=== PATIENT | female | born 1960 | race Caucasian/White ===

== ENCOUNTER 2018-07-10 10:58 | Outpatient (CLI) | payer BC, SELFPAY ==
[2018-07-10 12:58] LABS: ALT 26 U/L (12-78); AST 16 U/L (15-37); Albumin 3.8 g/dL (3.4-5.0); Alkaline Phosphatase 106 U/L (46-116); Anion Gap 10.8 mmol/L (3-11); BUN 20 mg/dL (7-18); Bilirubin, Total 1.5 mg/dL (0.2-1.0); CO2 27.2 mmol/L (21.0-32.0); CREATININE 0.93 mg/dL (0.55-1.02); Calcium 9.2 mg/dL (8.5-10.1); Chloride 101 mmol/L (98-107); Cholesterol 210 mg/dL (50-200); Glucose 156 mg/dL (70-100); HDL Cholesterol 93 mg/dL (40-60); LDL CHOLESTEROL 105 mg/dL (<100); Potassium 3.9 mmol/L (3.5-5.1); Sodium 139 mmol/L (136-145); Total Protein 7.1 g/dL (6.4-8.2); Triglyceride 54 mg/dL (30-150)
[2018-07-10 13:00] LABS: Hemoglobin A1C 9.5 % (4.5-6.2)
[2018-07-10 13:55] LABS: COMMENT (LAB VIEW ONLY) 38.34 mg/dL; Microalb ug/mg Crea 8.3 ug/mg Cr
== END 2018-07-10 11:18 ==
PROVIDERS: PCP Family Medicine; Visit Provider Family Medicine
DX: E11.9 Type 2 diabetes mellitus without complications (principal)
CPT/HCPCS: 36415; 80053; 80061; 83721; 82043; 82570; 83036

== ENCOUNTER 2018-07-10 15:25 | Outpatient (REF) | payer BC, SELFPAY ==
--- NOTE | 2018-07-10 12:00 | PAPFT_PTH ---
PATIENT: Paty Torres LOC: [facility] U#:[id number] AGE/SX: 58/F ROOM: RE07/10/[address]: Natasha Trinidad MD : [id number] BED: DIS: 07/10/2018 SPEC #: [id number] RECD: 07/11/18 13:18 STATUS: DONNA RERola #: [id number] KENNEDY: 07/10/18 12:[address]: Natasha Trinidad DEPT: [facility] Cytology RECD BY: Jerilyn Muhammad Tissues: 1 - CX/ENDOCX FOR PAP SMEARS Procedures: PAP THIN PREP/UVM Screening HPV DNA PROBE Comments: [id number]
== END 2018-07-10 15:45 ==
LOC: LBN 15:25
PROVIDERS: PCP Family Medicine; Visit Provider Family Medicine
DX: Z12.4 Encounter for screening for malignant neoplasm of cervix (principal); Z11.51 Encounter for screening for human papillomavirus (HPV)
CPT/HCPCS: 88142; 87624

== ENCOUNTER 2019-07-21 10:14 | Outpatient (CLI) | payer BC, SELFPAY ==
[2019-07-21 13:31] LABS: ALT 30 U/L (14-59); AST 17 U/L (15-37); Albumin 3.9 g/dL (3.4-5.0); Alkaline Phosphatase 104 U/L (46-116); Anion Gap 8.3 mmol/L (3-11); BUN 17 mg/dL (7-18); Bilirubin, Total 0.9 mg/dL (0.2-1.0); CO2 29.7 mmol/L (21.0-32.0); CREATININE 0.77 mg/dL (0.55-1.02); Calcium 9.3 mg/dL (8.5-10.1); Calculated LDL 97 mg/dL (<100); Chloride 103 mmol/L (98-107); Cholesterol 193 mg/dL (<200); Glucose 151 mg/dL (74-106); HDL Cholesterol 88 mg/dL (40-60); Potassium 4.8 mmol/L (3.5-5.1); Sodium 141 mmol/L (136-145); Total Protein 7.1 g/dL (6.4-8.2); Triglyceride 40 mg/dL (<150)
[2019-07-21 13:38] LABS: COMMENT (LAB VIEW ONLY) 261.82 mg/dL; Microalb ug/mg Crea 6.3 ug/mg Cr
[2019-07-21 13:43] LABS: Bilirubin, Direct 0.19 mg/dL (0.00-0.20)
[2019-07-21 15:34] LABS: Hemoglobin A1C 7.7 % (3.8-5.6)
== END 2019-07-21 10:34 ==
PROVIDERS: PCP Family Medicine; Visit Provider Family Medicine
DX: R17 Unspecified jaundice (principal); E11.65 Type 2 diabetes mellitus with hyperglycemia; E78.5 Hyperlipidemia, unspecified
CPT/HCPCS: 36415; 80053; 80061; 82043; 82248; 82570; 83036

== ENCOUNTER 2019-12-19 03:52 | Outpatient (CLI) | payer BC, SELFPAY ==
--- NOTE | 2019-12-19 08:30 | DI.MAMMO_ITS ---
EXAM: MG MAMMO SCREENING CLINICAL HISTORY: screening,z12.39 TECHNIQUE: Mammograms were interpreted according to the usual protocol including computer analysis w [facility] CAD system, tomosynthesis and C-view imaging. COMPARISON: FINDINGS: The breasts are of moderate density with fairly symmetrical distribution of fibroglandular tissue. N o dominant mass or clumped microcalcification is identified in either breast. The current examinatio n is compared with previous studies including December 2017 and there has been no gross interval change i n appearance in comparison with the prior exams. IMPRESSION: No specific evidence of malignancy at this time. Routine screening examinations are suggested at yea rly intervals in this age group according to the ACS ACR guidelines. BI-RADS Category 1 - Negative Breast Density - Category B - Scattered areas of fibroglandular density
== END 2019-12-19 04:12 ==
PROVIDERS: PCP Family Medicine; Visit Provider Family Medicine
DX: Z12.31 Encounter for screening mammogram for malignant neoplasm of breast (principal)
CPT/HCPCS: 77063; 77067

== ENCOUNTER 2020-01-26 07:14 | Outpatient (CLI) | payer BC, SELFPAY ==
[2020-01-28 05:08] LABS: SARS-CoV-2 RNA Undetected (Undetected); SARS-CoV-2 Specimen Source Nasopharynx
== END 2020-01-26 07:34 ==
PROVIDERS: PCP Family Medicine; Visit Provider Family Medicine
DX: Z11.59 Encounter for screening for other viral diseases (principal)
CPT/HCPCS: U0003

== ENCOUNTER 2020-08-04 03:05 | Outpatient (CLI) | payer BC, SELFPAY ==
[2020-08-04 10:26] LABS: COMMENT (LAB VIEW ONLY) 86.59 mg/dL; Microalb ug/mg Crea 5.5 ug/mg Cr
[2020-08-04 10:29] LABS: ALT 29 U/L (14-59); AST 18 U/L (15-37); Albumin 3.9 g/dL (3.4-5.0); Alkaline Phosphatase 110 U/L (46-116); Anion Gap 9.7 mmol/L (3-11); BUN 17 mg/dL (7-18); Bilirubin, Total 0.9 mg/dL (0.2-1.0); CO2 27.3 mmol/L (21.0-32.0); CREATININE 0.8 mg/dL (0.55-1.02); Calcium 9.2 mg/dL (8.5-10.1); Calculated LDL 82 mg/dL (<100); Chloride 102 mmol/L (98-107); Cholesterol 180 mg/dL (<200); Glucose 218 mg/dL (74-106); HDL Cholesterol 88 mg/dL (40-60); Potassium 4.5 mmol/L (3.5-5.1); Sodium 139 mmol/L (136-145); Total Protein 7.4 g/dL (6.4-8.2); Triglyceride 54 mg/dL (<150)
== END 2020-08-04 03:06 | disposition home or self-care (01) ==
LOC: LBO 03:05
PROVIDERS: PCP Family Medicine; Visit Provider Family Medicine
DX: E11.9 Type 2 diabetes mellitus without complications (principal); Z79.4 Long term (current) use of insulin
CPT/HCPCS: 36415; 80053; 80061; 82043; 82570; 83036

== ENCOUNTER 2021-09-16 02:14 | Outpatient (CLI) | payer BC, SELFPAY ==
--- NOTE | 2021-09-16 08:02 | DI.MAMMO_ITS ---
Exam(s) MAMMO SCREENING EXAM: MAMMO SCREENING CLINICAL HISTORY: screening,z12.39 TECHNIQUE: Bilateral full field digital CC and MLO mammographic images were obtained with 3D tomosyn thesis and utilizing computer aided detection (CAD). COMPARISON: Available for comparison. FINDINGS: Masses/Architectural Distortion: None seen. Microcalcifications: No suspicious pleomorphic-type are seen. Skin Thickening/Nipple Retraction: None. IMPRESSION: 1. No significant interval change with no specific features of malignancy noted. 2. Unless there is more urgent need, screening mammography is recommended, as per [employer] guidelines. BI-RADS Category 1 - Negative Breast Density - Category B - Scattered areas of fibroglandular density Breast density category C or D implies that the patient has dense breast tissue. Dense breast tissue is very common and is not abnormal but dense breast tissue can make it harder to find cancer on a ma mmogram. Also, dense breast tissue may increase their breast cancer risk. This information about the result of the mammogram report was provided to the patient to raise their awareness. Use this report when you speak with the patient about their risks for breast cancer, which includes their family hist ory. At that time, you may recommend for more screening tests (Ultrasound or MRI) as they might be us eful based on their risk. A negative radiographic report should not delay biopsy if a dominant or clinically suspicious mass is present. Up to ten percent of cancers are not identified on mammography. A negative report may reinforce clinical impression. Adenosis and dense breasts may obscure an underlying neoplasm. False positive reports average 6 to 10%. Patient will receive a letter notifying them of these results.
== END 2021-09-16 02:34 ==
PROVIDERS: PCP Nurse Practitioner; Visit Provider Family Medicine
DX: Z12.31 Encounter for screening mammogram for malignant neoplasm of breast (principal)
CPT/HCPCS: 77063; 77067

== ENCOUNTER 2021-11-19 04:39 | Observation (INO) | payer BC, SELFPAY ==
[2021-11-19] VITALS (20 sets, daily range): BP systolic 100–191; BP diastolic 52–101; PULSE 62–107; RESP 13–25; TEMP 35.3–36.7; O2SAT 94–100; BMI 25.7
--- NOTE | 2021-11-19 04:45 | DI.RAD_ITS ---
Exam(s) XR ANKLE RT COMPLETE EXAM: XR ANKLE RT COMPLETE CLINICAL HISTORY: fall, suspect fracture vs dislocation. TECHNIQUE: 2D digital imaging was performed of the right ankle. Three images were obtained. AP, la teral and oblique views were obtained. COMPARISON: No exams were available for comparison FINDINGS: BONES: There is an acute oblique fracture of the distal fibula at the level of the ankle joint. The distal fracture is angulated laterally. There is also a transverse fracture through the base of the medial malleolus with lateral displacement of the fracture. No bony destructive lesion is seen. JOINTS: There is lateral angulation and subluxation of the ankle joint. SOFT TISSUE: Soft tissue swelling is present. IMPRESSION: Bilayer older fracture with lateral angulation and subluxation of the ankle joint. DATA REPOSITORY: RADIATION DOSE DELIVERED:
--- NOTE | 2021-11-19 04:50 | ED.GENADUL_ITS ---
Discharge Plan Disposition Patient Disposition: [facility] INPATIENT Condition: Stable Discharge Details Clinical Impression: Ankle fracture, right, Closed right fibular fracture Primary Care Provider: Eleanor Bedoya ED Provider: Matthew Ruff Home Meds and New Rx's Prescriptions: No Action hydroxyzine HCl 25 mg tablet 25 mg PO HS PRN (Reason: itching) Qty: 30 1RF aspirin 81 mg tablet,delayed release (DR/EC) 81 mg PO DAILY Qty: 90 0RF Rx Instructions: not sent valacyclovir [Valtrex] 1 gram tablet 2,000 mg PO DIRECTED Qty: 20 2RF Rx Instructions: TAKE 2 TABS WHEN SYMPTOMS START AND 2 TABS 12 HOURS LATER atorvastatin 40 mg tablet 40 mg PO DAILY Qty: 90 3RF Rx Instructions: /take one tablet daily (DME) Dexcom G6 [employer] Misc See Rx Instructions .ROUTE .MEDSUPPLY Qty: 1 0RF Rx Instructions: As directed (DME) pen needle, diabetic [BD Ultra-Fine Short Pen Needle] 31 gauge x 5/16 needle See Dose Instructions .ROUTE .MEDSUPPLY Qty: 450 4RF Dose Instruction: As directed Rx Instructions: 1 each 5 times/day as directed (DME) FreeStyle Lite Strips Strip See Rx Instructions .ROUTE .MEDSUPPLY Qty: 600 4RF Rx Instructions: Check blood sugar 6 times a day (DME) FreeStyle Loni 2 Lovejoy Misc See Rx Instructions .ROUTE .MEDSUPPLY Qty: 1 0RF Rx Instructions: As directed Lantus Solostar U-100 Insulin 100 unit/mL (3 mL) insulin pen 24 unit subcut DAILY Qty: 15 4RF (DME) FreeStyle Loni 2 Sensor Kit See Rx Instructions .ROUTE .MEDSUPPLY Qty: 6 4RF Rx Instructions: As directed (DME) Dexcom G6 Sensor Device See Rx Instructions .ROUTE .MEDSUPPLY Qty: 3 12RF Rx Instructions: As directed (DME) Dexcom G6 Transmitter Device See Rx Instructions .ROUTE .MEDSUPPLY Qty: 1 12RF Rx Instructions: As directed insulin lispro [Humalog KwikPen Insulin] 100 unit/mL insulin pen 8 unit SC QID Qty: 30 0RF Medical Decision Making This is a very pleasant 61-year-old female with a past medical history of high cholesterol, type 2 diabetes, who presents today for evaluation of right ankle pain. Patient was getting up to check her blood sugar levels this morning, and twisted her ankle and had immediate pain. She denies falling and hitting her head. She denies any other trauma. She has not been able to bear weight on the right ankle since the episode occurred. She came in with her for further evaluation. She denies any new numbness or tingling. She states the pain is very mild. Only worsened with palpation or weightbearing Goal exam demonstrate physical exam of the right ankle demonstrates that clearly dislocated or fractured ankle. Exam distal to the injury site demonstrates good sensation throughout the foot, good flexion and extension of the toes, dorsalis pedis is +2, and capillary refill is 3 seconds in all digits. We will get an x- ray to confirm suspected pathology, patient wants nothing for her pain at this time. We will continue to monitor closely and reassess 5:31 AM X-ray shows results of distal fibular fracture and ankle mortise malalignment. Suspicion for other osseous injury. Patient will likely require surgery. Patient ate lastat about 4 AM. Will get labs, and do maintenance fluids of D5 h [place]-normal to maintain blood sugar levels with every 2 hours Accu-Cheks. We will contact orthopedics. Patient remains notably comfortable on pillow. Patient remains vascularly intact. 7:20 AM Orthopedics did recommend attempt at reduction, splinting, outpatient management is successful. Patient was sedated without complication, we were able to reduce the ankle easily, however it would quickly flipped back into its prereduction position. There felt to be no significant posterior and lateral barriers to hold it. Subsequently we again reduced it and held it there while a splint was applied. However subsequent x-ray revealed that there was no improvement whatsoever. We did contact orthopedics, and Dr. Riley again reviewed the case. He feels that the patient will need to be brought to the OR for definitive surgical management. We will keep the patient n.p.o. and monitor here in the ED. postprocedural exam still does demonstrate intact sensation, and intact vascular exam FINDINGS: Bones/joints: Oblique fracture through the distal fibula at the level of the tibiofibular syndesmosis. Lateral angulation of the distal fracture fragment. Overlap of the fracture fragments. Malalignment of the ankle mortise. Probable additional fracture of the distal tibia, poorly characterized. Soft tissues: No tibio-talar joint effusion is present. Kager's fat pad is normal. IMPRESSION: 1. Distal fibular fracture. 2. Malalignment of the ankle mortise. 3. Probable additional fracture of the distal tibia. Consider cross-sectional imaging for further evaluation. Thank you for allowing us to participate in the care of your patient. Dictated and Authenticated by: Tye Theodore MD 11/19/2021 5:30 AM Eastern Time ([place] & [place]) HPI General Date/Time Provider Initiated Documentation: 11/19/21 04:39 . HPI Narrative: This is a very pleasant 61-year-old female with a past medical history of high cholesterol, type 2 diabetes, who presents today for evaluation of right ankle pain. Patient was getting up to check her blood sugar levels this morning, and twisted her ankle and had immediate pain. She denies falling and hitting her head. She denies any other trauma. She has not been able to bear weight on the right ankle since the episode occurred. She came in with her for further evaluation. She denies any new numbness or tingling. She states the pain is very mild. Only worsened with palpation or weightbearing Related Data Home Medications Medication Instructions Recorded Confirmed valacyclovir 1 gram tablet 2,000 mg PO DIRECTED #20 07/24/18 11/19/21 (Valtrex) tab-caps pen needle, diabetic 31 gauge x #450 ea 09/18/18 08/03/2111/07 (BD Ultra-Fine Short Pen Needle) hydroxyzine HCl 25 mg tablet 25 mg PO HS PRN itching #30 tabs 07/21/19 11/19/21 blood sugar diagnostic (FreeStyle #600 ea 07/27/20 08/03/21 Lite Strips) flash glucose scanning reader #1 ea 08/05/20 08/03/21 (FreeStyle Lnoi 2 Lovejoy) insulin glargine 100 unit/mL (3 24 unit (0.24 mL) subcut DAILY #15 01/10/21 11/19/21 mL) subcutaneous pen (Lantus mL Solostar U-100 Insulin) aspirin 81 mg tablet,delayed 81 mg PO DAILY #90 tabs 01/27/21 11/19/21 release flash glucose sensor (FreeStyle #6 ea 22 08/03/21 Loni 2 Sensor kit) atorvastatin 40 mg tablet 40 mg PO DAILY #90 tab-caps 08/03/21 11/19/21 blood-glucose meter,continuous #1 ea 22 08/03/21 (Dexcom G6 [employer] misc) blood-glucose sensor (Dexcom G6 #3 ea 09/06/21 Sensor device) blood-glucose transmitter (Dexcom #1 ea 09/06/21 G6 Transmitter device) insulin lispro 100 unit/mL 8 unit (0.08 mL) subcut QID #30 mL 10/28/21 11/19/21 subcutaneous pen (Humalog KwikPen (U-100) Insulin) Previous Rx's Medication Instructions Recorded valacyclovir 1 gram tablet 2,000 mg PO DIRECTED #20 07/24/18 (Valtrex) tab-caps pen needle, diabetic 31 gauge x #450 ea 09/18/18/ (BD Ultra-Fine Short Pen Needle) hydroxyzine HCl 25 mg tablet 25 mg PO HS PRN itching #30 tabs 07/21/19 blood sugar diagnostic (FreeStyle #600 ea 07/27/20 Lite Strips) flash glucose scanning reader #1 ea 08/05/20 (FreeStyle Loni 2 Lovejoy) insulin glargine 100 unit/mL (3 24 unit (0.24 mL) subcut DAILY #15 01/10/21 mL) subcutaneous pen (Lantus mL Solostar U-100 Insulin) aspirin 81 mg tablet,delayed 81 mg PO DAILY #90 tabs 01/27/21 release flash glucose sensor (FreeStyle #6 ea 07/20/21 Loni 2 Sensor kit) atorvastatin 40 mg tablet 40 mg PO DAILY #90 tab-caps 08/03/21 blood-glucose meter,continuous #1 ea 08/03/21 (Dexcom G6 [employer] misc) blood-glucose sensor (Dexcom G6 #3 ea 09/06/21 Sensor device) blood-glucose transmitter (Dexcom #1 ea 09/06/21 G6 Transmitter device) insulin lispro 100 unit/mL 8 unit (0.08 mL) subcut QID #30 mL 10/28/21 subcutaneous pen (Humalog KwikPen (U-100) Insulin) Allergies Allergy/AdvReac Type Severity Reaction Status Date / Time No Known Allergies Allergy Verified 11/19/21 04:47 General Stated Complaint: Orthopedic DILSHAD: 3 Review of Systems All systems reviewed & are unremarkable except as noted in HPI and below PFSH All Active Problems (Updated 11/19/21 @ 07:23 by Matthew Ruff DO) Ankle fracture, right (Acute) Closed right fibular fracture (Acute) Herpes labialis (Acute) As needed high-dose Valtrex x2 doses Vitiligo (Acute) Diffuse hypopigmentation Hyperlipidemia (Acute) Diabetes mellitus type 2, insulin dependent (Acute) Contact dermatitis (Acute) Surgical History Ligation of fallopian tube Family History Mother Diabetes Essential hypertension Skin cancer Heart disease Father , age 60 Essential hypertension Heart disease Emphysema lung Diabetes Sister Essential hypertension Hyperlipidemia Diabetes Maternal Grandfather No problems noted. Paternal Grandfather Cancer Maternal Grandmother Alcohol abuse Paternal Grandmother No problems noted. Sister Diabetes Essential hypertension Hyperlipidemia Sister No problems noted. Sister No problems noted. Son Alcohol abuse Daughter No problems noted. Social History Smoking/Tobacco Use Status: Never Second Hand Exposure: Yes Smoking risk assessment performed?: Yes Alcohol Intake: current Alcohol Intake frequency: holidays/special occasions only Drug use: Never Substance use type: does not use Counseling given: Yes Counseling provided: none Caregiver/Support person: No Household members: spouse Housing: house Communication Needs: None Do you need help understanding health information?: Never Pets and animals: Yes Pets and animals: dog(s) Sexually active: Yes Do you think of yourself as: straight/heterosexual Current gender identity: female What is your relationship status?: How often do you talk on the phone with friends or family?: three or more times per week How often do you attend pentecostal or oriental orthodox services?: decline to answer Do you belong to any clubs or organized social groups?: no Panel score (0-1 are the most socially isolated patients): 2 What type of physical activity do you participate in: walking and other Details: treadmill Duration: 15-30 minutes/day Frequency: 1-2 times per week Sari/Oriental Orthodox: Gnosticist Special sari needs: No Seatbelt use: always Helmet use: Yes Helmet use: always Drive intox or ride w/intox jinrikisha driver: No Do you feel safe at home: Yes Do you feel safe in your relationship?: Yes Exam Narrative Exam Narrative: 1.Const: Well-nourished, Well-developed, appearing stated age 2.Eyes: PERRL, no conjunctival injection, and symmetrical lids. 3.ENT: Atraumatic external nose and ears. Moist MM. Neck: Symmetric, trachea midline, No thyromegaly. 4.CVS: +S1/S2, No murmurs or gallops. Peripheral pulses 2+ and equal in all extremities. Brisk capillary refill in all extremities. 5.RESP: Unlabored respiratory effort. Clear to auscultation bilaterally. No wheezes rales or rhonchi 6.GI: Soft, Nontender/Nondistended, No hepatosplenomegaly. No guarding or rebound. 7.MSK: Notable deformity of the right ankle with what appears to be anterior displacement of the distal tibia. Mild tenderness there. Distal exam from the injury point demonstrates intact dorsalis pedis pulse, good sensation throughout, capillary refill is 3 seconds. Patient is able to flex and extend the toes well. No movement of the ankle secondary to suspected fracture/dislocation. 8.Skin: Warm, Dry. No rashes or lesions. 9.Neuro: assessment services manager II-XII grossly intact. Sensation grossly intact, no focal neurologic deficits. 10.Psych: (AAO) x3. Appropriate mood and affect Course Vital Signs Vital signs: Vital Signs Temperature 36.7 C 11/19/21 04:45 Pulse 71 11/19/21 04:45 Respiratory Rate 16 11/19/21 04:45 Blood Pressure 151/74 H 11/19/21 04:45 Pulse Oximetry 99 11/19/21 04:45 Temperature 36.7 C 11/19/21 04:45 Temperature Source Skin 11/19/21 04:45 Pulse 71 11/19/21 04:45 Respiratory Rate 16 11/19/21 04:45 Blood Pressure 151/74 H 11/19/21 04:45 Pulse Oximetry 99 11/19/21 04:45 Pain Level 3 11/19/21 04:45 Procedures Orthopedic Fracture Reduction Fracture #1: Time Out Performed: Yes Side: right Fracture Reduction Location: other (ankle) Analgesia: procedural sedation Technique: direct manipulation and traction/counter-traction Post Reduction X-rays Demonstrate: other (no improvement) Post-reduction neuro exam: intact Post-reduction vascular exam: intact Splint Applied: Yes Patient Tolerated Procedure: well Procedural Sedation Indication: fracture/dislocation reduction ASA Class: II Time of Last PO Intake: 04:00 Preparation: campus monitor applied, pulse oximeter, capnometry used, supplemental O2 applied, suction/airway equipment at bedside and IV secured Ketamine: IV Ketamine dose (mg): 50 Patient Tolerated Procedure: well and no complications Complications: none Sign Out Sign Out Data: Sign Out Comment: Right ankle fracture, pending admission to the OR Last updated by Matthew Ruff DO at 11/19/21 07:24
--- NOTE | 2021-11-19 05:30 | DI.VRAD_ITS ---
PROCEDURE INFORMATION: Exam: XR Right Ankle Exam date and time: 11/19/2021 4:59 AM Age: 61 years old Clinical indication: Injury or trauma; Fracture, traumatic; Closed fracture; Right; Not specified; Injury date: 11/19/21; Injury details: PT states fall syncope, ankle injury TECHNIQUE: Imaging protocol: XR Right ankle. Views: 3 or more views. COMPARISON: No relevant prior studies available. FINDINGS: Bones/joints: Oblique fracture through the distal fibula at the level of the tibiofibular syndesmosis. Lateral angulation of the distal fracture fragment. Overlap of the fracture fragments. Malalignment of the ankle mortise. Probable additional fracture of the distal tibia, poorly characterized. Soft tissues: No tibio-talar joint effusion is present. Kager's fat pad is normal. IMPRESSION: 1. Distal fibular fracture. 2. Malalignment of the ankle mortise. 3. Probable additional fracture of the distal tibia. Consider cross-sectional imaging for further evaluation. Dictated and Authenticated by: Tye Theodore MD. Ordering:ARINA Castro MD
[2021-11-19 05:37] LABS: Abs Immature Grans 0.05 10^3/uL (0.0-0.06); Absolute Basophil Count 0.04 10^3/uL (0.0-0.2); Absolute Eosinophil Count 0.09 10^3/uL (0.0-0.7); Absolute Lymphocyte Count 1.34 10^3/uL (1.2-3.4); Absolute Monocyte Count 1.13 10^3/uL (0.1-0.8); Basophils % 0.3; Eosinophils % 0.7; HCT 36.9 % (36.0-46.0); HGB 11.9 g/dL (11.2-15.7); Immature Grans % 0.4; Lymphocytes % 10.8; MCH 28.5 pg (27.0-33.0); MCHC 32.2 % (32.0-36.0); MCV 88 fL (80-95); MPV 10.4 fL (8.0-11.0); Monocytes % 9.1; Neutrophils % 78.7; Platelet Count 329 10^3/uL (130-400); RBC 4.18 10^6/uL (3.93-5.22); RDW 13.3 % (11.7-14.6); RDW-SD 43.2 fL; WBC 12.45 10^3/uL (4.4-10.8)
[2021-11-19 05:58] LABS: ALT 29 U/L (14-59); AST 22 U/L (15-37); Albumin 3.6 g/dL (3.4-5.0); Alkaline Phosphatase 92 U/L (46-116); Anion Gap 10.9 mmol/L (3-11); BUN 17 mg/dL (7-18); Bilirubin, Total 0.4 mg/dL (0.2-1.0); CO2 26.1 mmol/L (21.0-32.0); CREATININE 0.8 mg/dL (0.55-1.02); Calcium 8.9 mg/dL (8.5-10.1); Chloride 107 mmol/L (98-107); Glucose 153 mg/dL (74-106); Potassium 4.2 mmol/L (3.5-5.1); Sodium 144 mmol/L (136-145); Total Protein 7.1 g/dL (6.4-8.2)
[2021-11-19] MEDS: Ketamine 500 MG/10 ML VIAL 68 MG IVP ×2 (06:40→06:51)
--- NOTE | 2021-11-19 06:45 | DI.RAD_ITS ---
Exam(s) XR ANKLE RT COMPLETE EXAM: XR ANKLE RT COMPLETE CLINICAL HISTORY: post reduction. TECHNIQUE: 2D digital imaging was performed of the right ankle. Three images were obtained. AP, la teral and oblique views were obtained. COMPARISON: CR,XR XR ANKLE RT COMPLETE from 11/19/2021 FINDINGS: BONES: There again seen angulated and displaced fractures of both the mediolateral malleoli. Since t he prior examination there is now visualized a displaced posterior malleolar fracture. No bony destr uctive lesion is seen. JOINTS: Since the prior examination there has been interval dislocation of the ankle. SOFT TISSUE: Soft tissue swelling is present. The patient's ankle is been placed in a cast. IMPRESSION: Trimalleolar fracture dislocation of the right ankle. Since the examination from earlier in the day there has been dislocation of the ankle joint and displacement of the posterior malleolar fracture. DATA REPOSITORY: RADIATION DOSE DELIVERED:
--- NOTE | 2021-11-19 07:00 | DI.CT_ITS ---
Exam(s) CT LOWER EXTREMITY RT WO EXAM: CT LOWER EXTREMITY RT WO CLINICAL HISTORY: attention ankle. TECHNIQUE: Imaging Protocol: Axial computed tomography images with coronal and sagittal reformatted images were created and reviewed. COMPARISON: CR,XR XR ANKLE RT COMPLETE from 11/19/2021 FINDINGS: Bones: There is an acute comminuted fracture of the lateral malleolus at the level of the ankle join t. Posterior and lateral angulation of the distal fracture is noted. There is a comminuted displace d fracture of the posterior malleolus. There is a transverse fracture through the medial malleolus. The medial malleolus is displaced laterally. There is a complete right ankle dislocation. There is no evidence of joint space narrowing or cystic degeneration seen. No lytic or sclerotic lesions are identified. Soft Tissues: There is soft tissue swelling of the ankle. The patient's ankle is in a cast. IMPRESSION: Right ankle trimalleolar fracture dislocation. RADIATION DOSE DELIVERED: 213.63mGy.cm Total DLP 213.63mGy.cm Total DLP DATA REPOSITORY: All CT scans at this facility are submitted to the National Radiology Data Registry (NRDR) Dose Index Registry (DIR) with the [employer] (ACR). RADIATION OPTIMIZATION: All CT scans at this facility use at least one of these dose optimization te chniques: automated exposure control; mA and/or kV adjustment per patient size (includes targeted exa ms where dose is matched to clinical indication); or iterative reconstruction.
--- NOTE | 2021-11-19 07:28 | NUR.NOTE ---
pt is awake and alert, went to ct. no pain noted. NOHEMY
--- NOTE | 2021-11-19 07:31 | NUR.NOTE ---
conscious sedation charting complete. pt is awake and alert, talking on phone. continue to monitor. waiting on surgical team. NOHEMY
--- NOTE | 2021-11-19 07:51 | DI.VRAD_ITS ---
Addendum created by Tye Theodore MD on 11/19/2021 7:54:21 AM EDT: THIS REPORT CONTAINS FINDINGS THAT MAY BE CRITICAL TO PATIENT CARE. The findings were verbally communicated via telephone conference with RAEGAN Garza at 7:53 AM EDT on 11/19/2021. The findings were acknowledged and understood. Initial report created on 11/19/2021 7:50:49 AM EDT: PROCEDURE INFORMATION: Exam: XR Right Ankle Exam date and time: 11/19/2021 7:06 AM Age: 61 years old Clinical indication: Abnormal findings; Abnormal imaging study; Post reduction R ankle TECHNIQUE: Imaging protocol: XR Right ankle. Views: 3 or more views. COMPARISON: CR XR ANKLE RT COMPLETE 11/19/2021 4:59 AM FINDINGS: Bones/joints: Oblique fracture of the distal fibula now with worsening posterior angulation of the distal fracture fragment. Probable fracture of the posterior malleolus of the distal tibia. Interval dislocation of the ankle joint. Displaced fracture of the medial malleolus. Soft tissues: Interval casting of the right lower extremity. IMPRESSION: 1. Interval casting of the ankle joint. 2. Trimalleolar fracture. 3. Interval dislocation of the ankle joint. Dictated and Authenticated by: Tye Theodore MD. Ordering:ARINA Castro MD
--- NOTE | 2021-11-19 07:56 | DI.VRAD_ITS ---
PROCEDURE INFORMATION: Exam: CT Right Lower Extremity Without Contrast, Ankle Exam date and time: 11/19/2021 7:23 AM Age: 61 years old Clinical indication: Injury or trauma; Fall; Ankle; Right; Severity of dislocation not specified TECHNIQUE: Imaging protocol: CT of the Right lower extremity without contrast was performed. Exam focused on the ankle. COMPARISON: 1. CR XR ANKLE RT COMPLETE 11/19/2021 4:59 AM 2. CR XR ANKLE RT COMPLETE 11/19/2021 7:06 AM FINDINGS: Bones/joints: Oblique fracture through the distal fibula with extension to the tibiofibular syndesmosis. Approximately 45 degrees of posterior angulation of the distal fibular fracture fragment. Approximately 1.5 cm of overlap with the distal fibular fracture fragment. Displaced medial malleolar fracture. Complex multipart displaced fracture of the posterior malleolus of the distal tibia. Complete dislocation of the ankle joint. The talar dome appears unremarkable. Lateral midfoot accessory ossicle. Soft tissues: Surrounding superficial soft tissue swelling. IMPRESSION: 1. Trimalleolar fracture. 2. Interval dislocation of the ankle joint. THIS REPORT CONTAINS FINDINGS THAT MAY BE CRITICAL TO PATIENT CARE. The findings were verbally communicated via telephone conference with RAEGAN Garza at 7:55 AM EDT on 11/19/2021. The findings were acknowledged and understood. Dictated and Authenticated by: Tye Theodore MD. Ordering:ARINA Castro MD
--- NOTE | 2021-11-19 08:00 | DI.RAD_ITS ---
Exam(s) XR ANKLE RT 2V EXAM: XR ANKLE RT 2V CLINICAL HISTORY: RIGHT ANKLE FRACTURE TECHNIQUE: 2D and realtime digital imaging was performed. CONTRAST MATERIAL: Refer to procedure report. COMPARISON: CR,XR XR ANKLE RT COMPLETE from 11/19/2021 FINDINGS: Fluoroscopy was provided for Dr. Riley during the performance of a open reduction and internal fi xation of the right ankle fracture. Please refer to the procedure report for complete details. Ka,r=0.72 mGy IMPRESSION: RADIATION DOSE DELIVERED:
--- NOTE | 2021-11-19 08:04 | OCONE_ITS ---
Date of service: 11/19/21 Time of Service: 07:40 History of Present Illness History of Present Illness Chief Complaint: Right Ankle Fracture Narrative: Paty is a 61-year-old diabetic who was getting up this morning and felt somewhat lightheaded. She thought that she was hypoglycemic and she somehow fell. She had immediate pain in her right ankle with deformity. She was and brought into the emergency department diagnosed with an ankle fracture with subluxation. Attempted close reduction was performed which unfortunately did not improve the reduction and resulted in a posterior dislocation. I was called in consultation and saw Paty in the emergency department. She denies any numbness or tingling. She denies any preinjury issues with the right ankle. She had no head trauma and reports no headache, change of vision, confusion. She denies having any issues with her feet from diabetes prior to this. She watches her glucose levels closely and is on insulin. She denies any sick contacts. She has no chest pain or shortness of breath. Consults Consult date: 11/19/21 Requesting physician: Matthew Ruff Consult Reason Right ankle fracture Assessment and Plan Assessment and plan (1) Ankle fracture, right: Status: Acute Assessment and plan: Paty is a 61-year-old who has a fracture dislocation of her right ankle. Closed reduction attempt by Dr. Ruff the emergency department not successful and therefore I recommend we proceed to the operating room for potential operative fixation versus close reduction and splinting. Given that we are still within 6 hours of the initial injury I think is more than reasonable to attempt operative fixation although the skin will determine this. I do worry about risk of wound issues given her diabetes but she is relatively well controlled and follows this closely. I discussed potential treatment options including partial stabilization with need to return for further intervention depending on the envelope of the ankle. I also discussed the necessary time for rehabilitation and her touchdown weightbearing status following surgery. After reviewing all this, she does agree to proceed. I discussed the risk of the procedure to include bleeding, infection, pain, stiffness, damage to nerves and vessels, damage to muscle and tendons, wound healing complications, arthritis, subluxa tion, instability, malunion, nonunion, hardware prominence, hardware failure, need for repeat procedures, and blood clot. Despite these risk, she elects to proceed. All questions were answered. We will proceed the operating room soon as possible. N.p.o. Cefazolin for antibiotics prior to incision. Admission following the surgery and then likely discharge to home. Review of Systems All systems reviewed & are unremarkable except as noted in HPI and below PFSH All Active Problems Ankle fracture, right (Acute) Closed right fibular fracture (Acute) Herpes labialis (Acute) As needed high-dose Valtrex x2 doses Vitiligo (Acute) Diffuse hypopigmentation Hyperlipidemia (Acute) Diabetes mellitus type 2, insulin dependent (Acute) Contact dermatitis (Acute) Surgical History (Updated 11/19/21 @ 08:07 by Omid Riley MD) History of bilateral ligation of fallopian tubes Ligation of fallopian tube Family History Mother Diabetes Essential hypertension Skin cancer Heart disease Father , age 60 Essential hypertension Heart disease Emphysema lung Diabetes Sister Essential hypertension Hyperlipidemia Diabetes Maternal Grandfather No problems noted. Paternal Grandfather Cancer Maternal Grandmother Alcohol abuse Paternal Grandmother No problems noted. Sister Diabetes Essential hypertension Hyperlipidemia Sister No problems noted. Sister No problems noted. Son Alcohol abuse Daughter No problems noted. Social History Smoking/Tobacco Use Status: Never Second Hand Exposure: Yes Smoking risk assessment performed?: Yes Alcohol Intake: current Alcohol Intake frequency: holidays/special occasions only Drug use: Never Substance use type: does not use Counseling given: Yes Counseling provided: none Caregiver/Support person: No Household members: spouse Housing: house Communication Needs: None Do you need help understanding health information?: Never Pets and animals: Yes Pets and animals: dog(s) Sexually active: Yes Do you think of yourself as: straight/heterosexual Current gender identity: female What is your relationship status?: How often do you talk on the phone with friends or family?: three or more times per week How often do you attend taoism or yazdanism services?: decline to answer Do you belong to any clubs or organized social groups?: no Panel score (0-1 are the most socially isolated patients): 2 What type of physical activity do you participate in: walking and other Details: treadmill Duration: 15-30 minutes/day Frequency: 1-2 times per week Sari/Restoration: Mandaen Special sari needs: No Seatbelt use: always Helmet use: Yes Helmet use: always Drive intox or ride w/intox wedding transportation driver: No Do you feel safe at home: Yes Do you feel safe in your relationship?: Yes Exam Const General: cooperative, healthy appearing, comfortable and no acute distress Resp Effort & Inspection: normal respiratory effort Cardio Rate: regular rate Rhythm: regular rhythm Extrem Other: Right lower extremity is in a splint. Toes are warm and well-perfused. She is able to actively extend and flex the great toe. Sensation intact light touch over the superficial and deep peroneal nerve and tibial nerve. The [place] wrap is mobilized and windowed which shows ecchymosis to the medial aspect of the ankle. There is some swelling but no break in the skin. Compartments are soft. Results Last Vital Signs Temp 36.7 C 11/19/21 04:45 Pulse 82 11/19/21 07:11 Resp 19 11/19/21 07:11 BP 162/72 H 11/19/21 07:11 Pulse Ox 99 11/19/21 07:11 Labs Result diagrams: 11/19/21 05:27 11/19/21 05:27 Labs: Laboratory Results - last 24 hr 11/19/21 11/19/21 05:27 05:27 WBC 12.45 H RBC 4.18 Hgb 11.9 Hct 36.9 MCV 88 MCH 28.5 MCHC 32.2 RDW 13.3 Plt Count 329 MPV 10.4 Immature Gran % 0.4 Neutrophils % 78.7 Lymphocytes % 10.8 Monocytes % 9.1 Eosinophils % 0.7 Basophils % 0.3 Nucleated RBC % 0.0 Absolute Neutrophils 9.80 H Absolute Lymphocytes 1.34 Absolute Monocytes 1.13 H Absolute Eosinophils 0.09 Absolute Basophils 0.04 Sodium 144 Potassium 4.2 Chloride 107 Carbon Dioxide 26.1 Anion Gap 10.9 BUN 17 Creatinine 0.8 Estimated GFR/1.73 m2 >= 60.00 Glucose 153 H Calcium 8.9 Total Bilirubin 0.4 AST 22 ALT 29 Alkaline Phosphatase 92 Total Protein 7.1 Albumin 3.6 Imaging Imaging Studies: X-ray of the right ankle demonstrates a posterior lateral subluxated talus with a large distal fibula fracture, transverse medial malleolar fracture, and small posterior malleolar fragment. Postreduction x-rays show further posterior dislocation of the talus CT scan of the right ankle was utilized to evaluate for distal tibia fracture which does show some comminution of the posterior malleolar fracture fragment. There is a small piece of articular cartilage seen wedged between some comminuted posterior tibial components. This still accounts for approximate 20% of the joint surface. No talus fracture. Long oblique distal fibula fracture and a single medial malleolar fragment.
[2021-11-19 08:09] LABS: Source Nasal/Nares
--- NOTE | 2021-11-19 08:16 | DSE_ITS ---
Date of service: 11/19/21 Time of Service: 13:15 DS: Diagnosis Discharge Diagnosis (1) Ankle fracture, right: Status: Acute Discharge Plan Disposition Patient Disposition: HOME Condition: Improving Discharge Details Reason For Visit: Right Ankle Fracture Admit Date/Time: 11/19/21 11:31 Admit Provider: Omid Riley Attending Provider: Omid Riley [facility] Hospital Course: Patient was admitted to the medical/surgical floor following the procedure. The surgery was tolerated well without any notable medical, surgical, or anesthetic complications. Mobilization began postoperatively. She was voiding spontaneously. Vitals were stable. Physical therapy worked with the patient and was cleared for discharge home. No acute medical issues. Pain was controlled on oral regimen. Home Meds and New Rx's Prescriptions: New acetaminophen 500 mg tablet 1,000 mg PO Q8H PRN (Reason: pain) Qty: 90 3RF ibuprofen 600 mg tablet 600 mg PO TID PRN (Reason: pain) Qty: 90 3RF oxycodone 5 mg tablet 5 mg PO Q4H Qty: 8 0RF Continued hydroxyzine HCl 25 mg tablet 25 mg PO HS PRN (Reason: itching) Qty: 30 1RF valacyclovir [Valtrex] 1 gram tablet 2,000 mg PO DIRECTED Qty: 20 2RF Rx Instructions: TAKE 2 TABS WHEN SYMPTOMS START AND 2 TABS 12 HOURS LATER atorvastatin 40 mg tablet 40 mg PO DAILY Qty: 90 3RF Rx Instructions: /take one tablet daily (DME) Dexcom G6 Field Mechanic/Site Lead Misc See Rx Instructions .ROUTE .MEDSUPPLY Qty: 1 0RF Rx Instructions: As directed (DME) pen needle, diabetic [BD Ultra-Fine Short Pen Needle] 31 gauge x 5/16 needle See Dose Instructions .ROUTE .MEDSUPPLY Qty: 450 4RF Dose Instruction: As directed Rx Instructions: 1 each 5 times/day as directed (DME) FreeStyle Lite Strips Strip See Rx Instructions .ROUTE .MEDSUPPLY Qty: 600 4RF Rx Instructions: Check blood sugar 6 times a day (DME) FreeStyle Loni 2 [place] Misc See Rx Instructions .ROUTE .MEDSUPPLY Qty: 1 0RF Rx Instructions: As directed Lantus Solostar U-100 Insulin 100 unit/mL (3 mL) insulin pen 24 unit subcut DAILY Qty: 15 4RF (DME) FreeStyle Loni 2 Sensor Kit See Rx Instructions .ROUTE .MEDSUPPLY Qty: 6 4RF Rx Instructions: As directed (DME) Dexcom G6 Sensor Device See Rx Instructions .ROUTE .MEDSUPPLY Qty: 3 12RF Rx Instructions: As directed (DME) Dexcom G6 Transmitter Device See Rx Instructions .ROUTE .MEDSUPPLY Qty: 1 12RF Rx Instructions: As directed insulin lispro [Humalog KwikPen Insulin] 100 unit/mL insulin pen 8 unit SC QID Qty: 30 0RF Changed aspirin 81 mg tablet,delayed release (DR/EC) 81 mg PO BIDWMEAL Qty: 90 0RF Rx Instructions: not sent Discharge Instructions Additional Instructions: Ankle ORIF Discharge Instructions Activity: You are NON WEIGHT BEARING. You should keep the leg elevated as much as possible. You may wiggle your toes and move your hip and knee. You may rest your leg on the ground but do not place any weight through it. You should use the walker for mobilization. Dressings: You should keep your splint clean and dry. Do NOT get wet or dirty. If you have issues with your splint, please call the office at [phone] or the hospital after hours. Medications: - You should take Tylenol and Ibuprofen around the clock for baseline pain. - You have been prescribed a stronger narcotic for breakthrough pain. - You should take a Baby Aspirin (81mg) twice a day for blood clot prevention. Follow-up: 2 weeks Referrals: Omid Riley MD [ [facility] STAFF PHYSICIAN] - Activity:: NWB. Keep Elevated Equipment/Supplies:: Walker Diet:: Carb Counting Discharge Orders Discharge Orders: Discharge Order (Routine); Ordered 11/19/21 Ordered By: Omid Riley DS: Summary Time Spent with Patient providing and/or coordinating discharge services: Less than 30 minutes Status at Discharge Functional status at discharge: uses cane/walker Overall status at discharge: patient is progressing back to baseline Mental Status: mental status grossly normal Speech and Movement: speech and movement normal Mood: congruent mood Affect: normal affect Exam Psych Mental Status: mental status grossly normal Speech and Movement: speech and movement normal Mood: congruent mood Affect: normal affect DS: Data Vitals/I&O Vitals and I&O: Vital Signs Temperature 36.7 C 11/19/21 04:45 Temperature Source Skin 11/19/21 04:45 Pulse 82 11/19/21 07:11 Pulse 107 H 11/19/21 06:51 Respiratory Rate 19 11/19/21 07:11 Respiratory Effort Non-Labored 11/19/21 04:48 Blood Pressure 162/72 H 11/19/21 07:11 Blood Pressure Mean 123 11/19/21 06:50 Pulse Oximetry 99 11/19/21 07:11 Respiratory End-tidal CO2 39 11/19/21 06:51 Pain Level 3 11/19/21 04:45 Intake & Output 11/18/21 11/18/21 11/19/21 11:59 23:59 11:59 Weight 68.039 kg Data Completed and Pending Labs on day of discharge: Labs from last 24 hours 11/19/21 11/19/21 11/19/21 08:05 05:27 05:27 WBC 12.45 H RBC 4.18 Hgb 11.9 Hct 36.9 MCV 88 MCH 28.5 MCHC 32.2 RDW 13.3 Plt Count 329 MPV 10.4 Immature Gran % 0.4 Neutrophils % 78.7 Lymphocytes % 10.8 Monocytes % 9.1 Eosinophils % 0.7 Basophils % 0.3 Nucleated RBC % 0.0 Absolute Neutrophils 9.80 H Absolute Lymphocytes 1.34 Absolute Monocytes 1.13 H Absolute Eosinophils 0.09 Absolute Basophils 0.04 Sodium 144 Potassium 4.2 Chloride 107 Carbon Dioxide 26.1 Anion Gap 10.9 BUN 17 Creatinine 0.8 Estimated GFR/1.73 m2 >= 60.00 Glucose 153 H Calcium 8.9 Total Bilirubin 0.4 AST 22 ALT 29 Alkaline Phosphatase 92 Total Protein 7.1 Albumin 3.6 COVID-19 Source Nasal/Nares SARS-CoV-2 (PCR) Pending [facility] All Active Problems Ankle fracture, right (Acute) Closed right fibular fracture (Acute) Herpes labialis (Acute) As needed high-dose Valtrex x2 doses Vitiligo (Acute) Diffuse hypopigmentation Hyperlipidemia (Acute) Diabetes mellitus type 2, insulin dependent (Acute) Contact dermatitis (Acute) Surgical History History of bilateral ligation of fallopian tubes Ligation of fallopian tube Family History Mother Diabetes Essential hypertension Skin cancer Heart disease Father , age 60 Essential hypertension Heart disease Emphysema lung Diabetes Sister Essential hypertension Hyperlipidemia Diabetes Maternal Grandfather No problems noted. Paternal Grandfather Cancer Maternal Grandmother Alcohol abuse Paternal Grandmother No problems noted. Sister Diabetes Essential hypertension Hyperlipidemia Sister No problems noted. Sister No problems noted. Son Alcohol abuse Daughter No problems noted. Social History Smoking/Tobacco Use Status: Never Second Hand Exposure: Yes Smoking risk assessment performed?: Yes Alcohol Intake: current Alcohol Intake frequency: holidays/special occasions only Drug use: Never Substance use type: does not use Counseling given: Yes Counseling provided: none Caregiver/Support person: No Household members: spouse Housing: house Communication Needs: None Do you need help understanding health information?: Never Pets and animals: Yes Pets and animals: dog(s) Sexually active: Yes Do you think of yourself as: straight/heterosexual Current gender identity: female What is your relationship status?: How often do you talk on the phone with friends or family?: three or more times per week How often do you attend nondenominational or pentecostal services?: decline to answer Do you belong to any clubs or organized social groups?: no Panel score (0-1 are the most socially isolated patients): 2 What type of physical activity do you participate in: walking and other Details: treadmill Duration: 15-30 minutes/day Frequency: 1-2 times per week Sari/Anabaptist: [employer] Special sari needs: No Seatbelt use: always Helmet use: Yes Helmet use: always Drive intox or ride w/intox experienced truck driver: No Do you feel safe at home: Yes Do you feel safe in your relationship?: Yes
--- NOTE | 2021-11-19 08:45 | ANES.PREOP_ITS ---
General Info Date of Service Date Performed: 11/19/21 Height: 5 ft 4 in Weight: 68.039 kg Body Mass Index (BMI): 25.7 Surgical Procedure: Operation Date: 11/19/21 07:50 Proposed Procedure Side Surgeon p Ankle ORIF Right Omid Riley MD Meds Allergies and Home Medications Allergies Allergy/AdvReac Type Severity Reaction Status Date / Time No Known Allergies Allergy Verified 11/19/21 04:47 Home Medication Medication Instructions Recorded valacyclovir 1 gram tablet 2,000 mg PO DIRECTED #20 07/24/18 (Valtrex) tab-caps pen needle, diabetic 31 gauge x #450 ea 09/18/18/ (BD Ultra-Fine Short Pen Needle) hydroxyzine HCl 25 mg tablet 25 mg PO HS PRN itching #30 tabs 07/21/19 blood sugar diagnostic (FreeStyle #600 ea 07/27/20 Lite Strips) flash glucose scanning reader #1 ea 08/05/20 (FreeStyle Loni 2 [place]) insulin glargine 100 unit/mL (3 24 unit (0.24 mL) subcut DAILY #15 01/10/21 mL) subcutaneous pen (Lantus mL Solostar U-100 Insulin) aspirin 81 mg tablet,delayed 81 mg PO DAILY #90 tabs 01/27/21 release flash glucose sensor (FreeStyle #6 ea 07/20/21 Loni 2 Sensor kit) atorvastatin 40 mg tablet 40 mg PO DAILY #90 tab-caps 08/03/21 blood-glucose meter,continuous #1 ea 08/03/21 (Dexcom G6 Slurry Control Operator Helper misc) blood-glucose sensor (Dexcom G6 #3 ea 09/06/21 Sensor device) blood-glucose transmitter (Dexcom #1 ea 09/06/21 G6 Transmitter device) insulin lispro 100 unit/mL 8 unit (0.08 mL) subcut QID #30 mL 10/28/21 subcutaneous pen (Humalog KwikPen (U-100) Insulin) Current Visit Medications: Current Medications Generic Name Dose Route Start Last Admin Trade Name Freq PRN Reason Stop Dose Admin Acetaminophen 1,000 mg 11/19/21 12:30 Acetaminophen 500 Mg Tab PO TID HERMES Dextrose 0 gm 11/19/21 08:16 Glucose 40% Oral Solution 15 Gm/37.5 Gm Tube PO DIRECTED PRN Dextrose/Water 0 gm 11/19/21 08:16 Dextrose 50%-Water 25 Gm/50 Ml Syr IVP DIRECTED PRN Hydromorphone HCl 0.5 mg 11/19/21 08:14 Hydromorphone 2 Mg/Ml Vial IVP Q2H PRN PRN Dextrose/Sodium Chloride 1,000 mls @ 30 mls/hr 11/19/21 05:13 Dextrose 5%-0.45% Ns IV 11/20/21 14:32 INFUSION STA Cefazolin Sodium/Dextrose 1 gm in 50 mls @ 100 mls/hr 11/19/21 14:00 Ancef Duplex IVPB 11/20/21 06:29 Q8H HERMES Non-Formulary Medication 8 unit 11/19/21 08:30 Insulin Lispro [Humalog Kwikpen Insulin] SC QID HERMES Ondansetron HCl 4 mg 11/19/21 08:14 Ondansetron 4 Mg/2 Ml Vial IVP Q6H PRN PRN Nausea Oxycodone HCl 0 mg 11/19/21 08:14 Oxycodone 5 Mg Tab PO Q3H PRN PRN Pain PFSH Active Problems Active Problems: Problem Status Onset Code Ankle fracture, right S82.891A Closed right fibular fracture S82.401A Herpes labialis B00.1 Vitiligo L80 Hyperlipidemia E78.5 Diabetes mellitus type 2, insulin dependent E11.9, Z79.4 Contact dermatitis L25.9 Surgical History Surgical History History of bilateral ligation of fallopian tubes Ligation of fallopian tube Tobacco Smoking/Tobacco Use Status: Never Passive smoking exposure: Yes Second hand exposure: Yes Alcohol Alcohol Intake: current Alcohol intake frequency: holidays/special occasions on ly Substance Use Substance use: Never Substance use type: does not use Counseling provided: none Vital Signs and Lab Results Vital Signs Most Recent Vital Signs in EMR: Most Recent Vital Signs Temp Pulse Resp BP Pulse Ox 36.7 C 82 19 162/72 H 99 11/19/21 04:45 11/19/21 07:11 11/19/21 07:11 11/19/21 07:11 11/19/21 07:11 Lab Results Result Diagrams: 11/19/21 05:27 11/19/21 05:27 Blood Type / Crossmatch: No Data to Display Complete Blood Count: White Blood Count 12.45 10^3/uL (4.4-10.8) H 11/19/21 05:27 Red Blood Count 4.18 10^6/uL (3.93-5.22) 11/19/21 05:27 Hemoglobin 11.9 g/dL (11.2-15.7) 11/19/21 05:27 Hematocrit 36.9 % (36.0-46.0) 11/19/21 05:27 Platelet Count 329 10^3/uL (130-400) 11/19/21 05:27 Complete Metabolic Panel: Sodium Level 144 mmol/L (136-145) 11/19/21 05:27 Potassium Level 4.2 mmol/L (3.5-5.1) 11/19/21 05:27 Chloride Level 107 mmol/L (98-107) 11/19/21 05:27 Carbon Dioxide Level 26.1 mmol/L (21.0-32.0) 11/19/21 05:27 Blood Urea Nitrogen 17 mg/dL (7-18) 11/19/21 05:27 Creatinine 0.8 mg/dL (0.55-1.02) 11/19/21 05:27 Estimated GFR/1.73 m2 >= 60.00 (mL/min/1.73m2) 11/19/21 05:27 Calcium Level 8.9 mg/dL (8.5-10.1) 11/19/21 05:27 Albumin 3.6 g/dL (3.4-5.0) 11/19/21 05:27 Glucose Level 153 mg/dL (74-106) H 11/19/21 05:27 Liver Function Panel: Alanine Aminotransferase (ALT/SGPT) 29 U/L (14-59) 11/19/21 05: 27 Aspartate Amino Transf (AST/SGOT) 22 U/L (15-37) 11/19/21 05:27 Coagulation Panel: No Data to Display Cardiac Panel: No Data to Display Arterial Blood Gas: No Data to Display Venous Blood Gas: No Data to Display Pancreas Panel: No Data to Display Thyroid Panel: No Data to Display Infectious Disease: Coronavirus (COVID-19)(PCR) Pending 11/19/21 08:05 Coronavirus 2019 Source Nasal/Nares 11/19/21 08:05 Blood Cultures: No Data to Display Toxicology Panel: No Data to Display Anesthesia Assessment and Plan Anesthesia History Personal History: No History of Anesthesia Complications Family History: No Family History of Anesthesia Complications Exercise Tolerance Exercise Tolerance: Metabolic Equivalents>4 Pertinent Negatives Pertinent Negatives: No Symptoms of GERD, No Major Cardiovascular Symptoms or Complaints, No Major Pulmonary Symptoms or Complaints and No History of CVA/TIA Cardiac & Pulmonary Exam Cardiac Exam: Normal S1/S2 Heart Sounds Pulmonary Exam: Clear Bilateral Breath Sounds Implantable Cardiac Device Does patient have a Pacemaker or an ICD?: No Airway Exam Known Difficult Airway: No Mallampati Class: 1 Mouth Opening: Normal (> 3cm) Thyromental Distance: Greater than 3 cm Neck Range of Motion: Full ROM Neck Circumference: Normal Teeth Condition: Normal Dentition ASA Classification ASA Score: ASA 2 Emergency Case?: No NPO Status NPO Status: NPO Clears >2 hours, Solids >8 hours Anesthesia Plan Resuscitation Status: Full Code Anesthesia Technique: General Anesthesia Airway Planned: Endotracheal Tube Monitors Used: Standard Monitors
[2021-11-19] MEDS: Lactated Ringers 1,000 ML 30 ML IV (08:50)
[2021-11-19 08:59] LABS: COVID-19 PCR Negative (Negative)
[2021-11-19] MEDS: Lactated Ringers 1,000 ML 100 ML IV (10:18)
--- NOTE | 2021-11-19 11:10 | W.ANESPOSTOP ---
Postoperative Evaluation Date, Time and Location Date Performed: 11/19/21 Time Performed: 11:10 Patient Location: PACU Vital Signs Most Recent Imported Vital Signs: Most Recent Vital Signs Temp Pulse Resp BP Pulse Ox 36.2 C L 81 18 142/80 H 98 11/19/21 11:00 11/19/21 11:00 11/19/21 11:00 11/19/21 11:00 11/19/21 11:00 Pain Score Most Recent Pain Score: Most Recent Pain Score Pain Level 0 11/19/21 11:00 Assessment Mental Status: Awake (Alert & Oriented to Patient Baseline) Airway and Respiratory Function: Patent airway with normal (patient baseline) respiratory exam Cardiovascular Function: Hemodynamically Stable Hydration Status: Adequately Hydrated Nausea & Vomiting: No Nausea or Vomiting Pain: Pt. Denies Any Pain Peripheral Nerve Block: Patient did not receive a nerve block
--- NOTE | 2021-11-19 11:30 | IN_ITS ---
Date of service: 11/19/21 PT Notes Visit Reasons: Right Ankle Fracture Inpatient Physical Therapy Evaluation Date: 11/19/21 Referring Doctor: Omid Riley MD PT Orders: PT CONSULT: s/p ORIF R ankle fracture, TDWB with walker Precautions: TDWB R LE Patient Profile/Admitting Diagnosis: S/P R ankle ORIF 11/19/21, needing AD training for discharge home. PMHX: All Active Problems? Ankle fracture, right (Acute) Closed right fibular fracture (Acute) Herpes labialis (Acute) As needed high-dose Valtrex x2 dosesVitiligo (Acute) Diffuse hypopigmentationHyperlipidemia (Acute) Diabetes mellitus type 2, insulin dependent (Acute) Contact dermatitis (Acute) Surgical History?(Updated 11/19/21 @ 08:07 by Omid Riley MD) History of bilateral ligation of fallopian tubes Ligation of fallopian tube Social History/Home Situation: Lives with , transitioning to [facility] on [address] - this is a three level (one step between levels) home, with three steps to enter with rail on right. Current Functional Limitations: NWB R LE, requires used RW Equipment Owned/DME: None Subjective: No pain, feeling a bit nervous about initiating mobility Objective: General Observation: Casted R ankle, appears a little groggy, in no ditress Mental Status: A&Ox3 Pain: 0/10 ROM: Grossly WFL throughout, aside from casted R ankle. Strength: Right Upper Extremity: WNL Left Upper Extremity: WNL Right Lower Extremity: WNL, aside from casted R ankle Left Lower Extremity: WNL Bed Mobility/Transfers: CG with STS, Stand to sit, bed to WC transfer, Min A with stair ambulation, NWB R LE Gait: NWB R LE, RW, CGx1. Min A x 1 for stair ambulation - will complete with assist. Treatment: Gait training 62488: Use of RW, hopping on L LE 10 ft x 3, instruction on stair ambulation with R rail up and down 4 6 steps, gait belt use, and min assist on left. Special Tests: Mobility Limitations Standardized Measure [facility] 6 clicks Basic Mobility Inpatient Short Form: 46% disability Informed Consent/Education: Patient instructed in purpose of PT consult and plan of care. Assessment: Patient is a 61 year old female referred to physical therapy services with the diagnosis of S/P R ankle ORIF this morning. Patient required walker device training for safe return home, with R LE TDWB per MD orders. Demonstrating need for CG A, which can safely provide. Demonstrating ability to carry out weightbearing restrictions to complete transfers, but encourage minimal ambulation to protect UE's and L LE. Patient is assessed as a Low 16118 History: See comorbidities Examination: TDWB R LE, requires AD Presentation: Stable Decision Making: Easy Plan of Care/Treatment Plan: Discharged home DISCHARGE RECOMMENDATIONS: Home with no services [Will follow ortho referral and recommendations] TREATMENT CODE/TIME: 70080 Documented with [employer] voice recognition software.
--- NOTE | 2021-11-19 11:35 | ROE_ITS ---
Date of service: 11/19/21 Time of Service: 10:30 Operative Note Operative Note DATE OF PROCEDURE: 11/19/21 PRE-OP DIAGNOSIS: Right Ankle Fracture-Dislocation POST-OP DIAGNOSIS: same PROCEDURE: Open Reduction and Internal Fixation of Right Trimalleolar Ankle Fracture - Medial and Lateral Malleolus SURGEON: Omid Riley L[employer]ADES SUPERVISOR: Coty Dougherty ANESTHESIA TYPE: General LMA/ETT Refer to Anesthesia Record ESTIMATED BLOOD LOSS: 20 PATHOLOGY: none sent TOURNIQUET TIME: 0 COMPLICATIONS: None Patient was transported to: PACU Patient's condition: stable Indications: Paty is a 61 year old female who presented to the Emergency Department after a fall. X-rays confirmed the diagnosis of a right ankle fracture-dislocation, trimalleolar. I reviewed the possible treatment options and given the fracture, I recommended operative fixation. I discussed the technical details of the surgery. I reviewed the risks such as bleeding, infection, pain, stiffness, malunion, nonunion, hardware prominence, hardware faiilure, malrotation, damage to nerves and vessels, blood clot. Despite these risks, she agreed to proceed. Findings: There was a highly unstable fracture of the ankle which was reduced with traction and internal rotation and external manipulation. The fibula was reduced and secured with a lag screw and neutralization plate. Medial malleolus fracture was reduced and secrued with 2 - 4.0mm cannulated screws. Procedure Description: Paty was greeted in the preoperative area. Consent was previously reviewed and signed. Once in the operating room, anesthesia was administered. The patient was transferred to the fracture table in the supine position. She was positioned in the supine position with the operative side placed onto a bone foam ramp. All bony prominences were well padded. Arms were placed out to the side, padded, and secured. Prophylactic antibiotics, Cefazolin 2 grams, was given for prophylactic antibiotics. A timeout was performed for safe surgery. The right leg was prepped with Chloraprep. The leg was draped with a stockinette and extremity drape. Starting with the medial side I made a curvilinear incision overlying the fracture of the medial malleolus towards the tip of the malleolus and over the anterior shoulder of the tibiotalar joint. Sharp dissection is carried on the skin only blunt dissection was easily performed to identify the fracture site. There is some stripping of the periosteum and soft tissues at the fracture site. The fracture was opened up with a lamina burlap spreader and the joint was inspected. There is no loose debris and no damage to the talus or the tibial cartilage surface. This joint was then irrigated and reduced. Attention was then turned to the lateral side. A longitudinal incision made overlying the posterior half of the fibula. This was taken down over the distal aspect of the fibula primarily. Sharp dissection was carried on the skin only. Blunt dissection was utilized to carried out to the lateral base of the fibula. Once the lateral fibula was identified periosteal dissection was used at the level of the fracture only to expose the fracture site. Reduction was performed using traction and internal rotation and a clamp. Once this was clamped a lag screw was placed across the fracture site. There was some comminution of the posterior fragment and therefore did not have absolute control with this screw fixation but it did provide substantial hold between the 2 fracture fragments. A neutralization plate was then placed. This was a 6 hole one third tubular locking plate. The distal last was contoured. Was placed against the fibula. A single nonlocking screw was placed proximal to the fracture site and then a single locking 3.5 millimeter screw was placed distal. X-rays utilized to confirm that it showed appropriate positioning. Direct visualization also showed adequate reduction. An additional locking screw was placed distal to the fracture fragment and 2 additional nonlocking screws were placed proximal. This had excellent stability of the fracture fragments. The posterior malleolar fragment was not further inspected. It was less than 20% of the joint surface and was grossly stable and recently reduced. Therefore I did not place any additional stabilization for the posterior malleolar fragment. Attention was turned back to the medial side. The medial malleolar fragment is largely reduced as it was but was held in appropriate position with direct visualization and a dental pick. 2 wires with a 4.0 millimeters cannulated screw system were then driven across the fracture. This was confirmed to be in a good position with the x-ray. I did place to 4 mm cannulated screws after drilling the first half of the screw path. The screws were placed with exc ellent compression. The malleolar fragment was secured and stable. X-rays were then taken to ensure that all screws were in appropriate positions without violation of the joint surface. Additionally a live x-ray was performed with maximal dorsiflexion external Tatian which showed no gapping of the medial tibiotalar space. The wounds were then thoroughly irrigated. The soft tissues and periosteum were injected with a mixture of ropivacaine, epinephrine, clonidine, ketorolac. The periosteum and deep tissues on the lateral side were closed with 0 Vicryl. The deep tissues medially and laterally closed with a 2-0 and 3-0 Vicryl. The skin was closed with a 4-0 nylon. The wounds were dressed with Xeroform, 4 x 4's, ABD, Webril. A short leg splint was then applied. At the end of the case, all counts were correct. Paty tolerated the procedure well without known complication and was taken to the PACU for recovery. Physical therapy will start post-operatively, nonweightbearing with a splint. Anticoagulation will start within 12-24 hours. 3 doses of post-operative antibiotics for prophylaxis will be administered.
[2021-11-19] MEDS: ceFAZolin 1 GM/50 ML BAG IVPB (13:51)
== END 2021-11-19 15:11 | disposition home or self-care (01) ==
LOC: ER 08:17 → SUR 08:31 → MS 14:16
PROVIDERS: Admitting Provider Student in an Organized Health Care Education/Training Program; Emergency Provider Student in an Organized Health Care Education/Training Program; PCP Nurse Practitioner; Visit Provider Student in an Organized Health Care Education/Training Program
PROC: (CPT 27822; principal; 2021-11-19 07:50)
DX: S82.851A Displaced trimalleolar fracture of right lower leg, initial encounter for closed fracture (principal); Z79.82 Long term (current) use of aspirin; E11.9 Type 2 diabetes mellitus without complications; L80 Vitiligo; B00.1 Herpesviral vesicular dermatitis; E78.5 Hyperlipidemia, unspecified; Z20.822 Contact with and (suspected) exposure to COVID-19; W18.39XA Other fall on same level, initial encounter; X50.1XXA Overexertion from prolonged static or awkward postures, initial encounter; Z79.4 Long term (current) use of insulin
CPT/HCPCS: 27822; C1713; 27788; 80053; 87635; 96365; 96374; 97116; 97161; 99285; 73600; 73610; 73700; 85025; G0378; J0131; J0690; J1100; J1885; J2250; J2405

== ENCOUNTER 2021-12-02 11:33 | Outpatient (CLI) | payer BC, SELFPAY ==
--- NOTE | 2021-12-02 10:15 | DI.RAD_ITS ---
Exam(s) XR ANKLE RT COMPLETE EXAM: XR ANKLE RT COMPLETE CLINICAL HISTORY: f/u R ankle ORIF. TECHNIQUE: 2D digital imaging was performed. Three images were obtained. AP, lateral and oblique vi ews were obtained. COMPARISON: CR,XR XR ANKLE RT COMPLETE from 11/19/2021 XA XR ANKLE RT 2V from 11/19/2021 FINDINGS: BONES: There are stable post operative changes present. No new fracture or dislocation. JOINTS: The joint spaces are well maintained. No joint effusion is present. SOFT TISSUE: Soft tissue swelling about the ankle. IMPRESSION: Stable postoperative changes. DATA REPOSITORY: RADIATION DOSE DELIVERED:
== END 2021-12-02 11:34 | disposition home or self-care (01) ==
LOC: DIORS 11:33
PROVIDERS: PCP Nurse Practitioner; Referring Provider Nurse Practitioner; Visit Provider Student in an Organized Health Care Education/Training Program
DX: S82.891D Other fracture of right lower leg, subsequent encounter for closed fracture with routine healing (principal); X58.XXXD Exposure to other specified factors, subsequent encounter
CPT/HCPCS: 73610

== ENCOUNTER 2021-12-22 02:26 | Outpatient (CLI) | payer BC, SELFPAY ==
[2021-12-22 14:27] LABS: Hemoglobin A1C 7.1 % (<5.7)
[2021-12-22 15:25] LABS: COMMENT (LAB VIEW ONLY) 147.81 mg/dL; Calculated LDL 187 mg/dL (<100); Cholesterol 289 mg/dL (<200); HDL Cholesterol 88 mg/dL (40-60); Microalb ug/mg Crea 4.8 ug/mg Cr; Triglyceride 74 mg/dL (<150)
== END 2021-12-22 02:27 | disposition home or self-care (01) ==
LOC: LOS 02:26
PROVIDERS: PCP Nurse Practitioner; Visit Provider Family Medicine
DX: E78.5 Hyperlipidemia, unspecified (principal); E11.9 Type 2 diabetes mellitus without complications; Z79.4 Long term (current) use of insulin
CPT/HCPCS: 36415; 80061; 82043; 82570; 83036

== ENCOUNTER 2021-12-30 10:05 | Outpatient (CLI) | payer OTHER, SELFPAY ==
--- NOTE | 2021-12-30 09:45 | DI.RAD_ITS ---
Exam(s) XR ANKLE RT COMPLETE EXAM: XR ANKLE RT COMPLETE CLINICAL HISTORY: f/u R ANKLE FRACTURE. TECHNIQUE: 2D digital imaging was performed. Three views. COMPARISON: CR XR ANKLE RT COMPLETE from 12/02/2021 FINDINGS: BONES: There has been no change in alignment of the trimalleolar fracture or hardware. There has bee n further fracture healing. No new abdomen no bony destructive lesion is seen. JOINTS: The ankle mortise is normally aligned. SOFT TISSUE: Swelling around both malleoli. IMPRESSION: Stable appearance of fractures and hardware. DATA REPOSITORY: RADIATION DOSE DELIVERED:
== END 2021-12-30 10:06 | disposition home or self-care (01) ==
LOC: DIORS 10:05
PROVIDERS: PCP Nurse Practitioner; Referring Provider Nurse Practitioner; Visit Provider Student in an Organized Health Care Education/Training Program
DX: S82.891A Other fracture of right lower leg, initial encounter for closed fracture (principal)
CPT/HCPCS: 73610

== ENCOUNTER 2022-02-17 08:16 | Outpatient (CLI) | payer OTHER, SELFPAY ==
--- NOTE | 2022-02-17 08:00 | DI.RAD_ITS ---
Exam(s) XR ANKLE RT COMPLETE EXAM: XR ANKLE RT COMPLETE CLINICAL HISTORY: s/p R ANKLE ORIF. TECHNIQUE: 2D digital imaging was performed. COMPARISON: CR XR ANKLE RT COMPLETE from 12/30/2021 FINDINGS: 3 views Hardware comprised of lateral fibular plate and 2 screws across the medial malleolus fracture site ar e again noted. Further healing evident. No widening of the ankle mortise. Talar dome unremarkable. On the lateral view there is a vertically orientated 11 by 4 millimeter osteophytic density project ed anterior to the tibial plafond. Difficult to determine if this is bony excrescence or loose body located anteriorly. No significant narrowing of the tibiotalar joint space and subtalar joint also a ppears unremarkable. No osseous tarsal coalition evident. No radiographic evidence hardware looseni ng nor osteomyelitis. IMPRESSION: DATA REPOSITORY: RADIATION DOSE DELIVERED:
== END 2022-02-17 08:17 | disposition home or self-care (01) ==
LOC: DIORS 08:16
PROVIDERS: PCP Nurse Practitioner; Referring Provider Nurse Practitioner; Visit Provider Student in an Organized Health Care Education/Training Program
DX: S82.891D Other fracture of right lower leg, subsequent encounter for closed fracture with routine healing (principal); X58.XXXD Exposure to other specified factors, subsequent encounter
CPT/HCPCS: 73610

== ENCOUNTER 2022-03-16 21:48 | Observation (INO) | payer MEDICARE, OTHER, SELFPAY ==
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
[2022-03-16 21:54] VITALS: BP 126/77; PULSE 78; RESP 18; TEMP 36.6; O2SAT 95
[2022-03-16 22:17] LABS: Abs Immature Grans 0.12 10^3/uL (0.0-0.06); Absolute Basophil Count 0.04 10^3/uL (0.0-0.2); Absolute Eosinophil Count 0.24 10^3/uL (0.0-0.7); Absolute Lymphocyte Count 2.82 10^3/uL (1.2-3.4); Absolute Monocyte Count 0.76 10^3/uL (0.1-0.8); Basophils % 0.4; Eosinophils % 2.2; HCT 37.2 % (36.0-46.0); HGB 12.1 g/dL (11.2-15.7); Immature Grans % 1.1; Lymphocytes % 26.2; MCH 28.1 pg (27.0-33.0); MCHC 32.5 % (32.0-36.0); MCV 87 fL (80-95); Monocytes % 7.1; Platelet Count 355 10^3/uL (130-400); RDW 13.1 % (11.7-14.6); RDW-SD 41.3 fL; WBC 10.78 10^3/uL (4.4-10.8)
[2022-03-16] MEDS: Normal Saline 500 ML IV (22:31)
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
[2022-03-16 22:38] LABS: ALT 37 U/L (14-59); AST 31 U/L (15-37); Albumin 3.7 g/dL (3.4-5.0); Alkaline Phosphatase 106 U/L (46-116); Anion Gap 8.1 mmol/L (3-11); BUN 21 mg/dL (7-18); Bilirubin, Total 0.5 mg/dL (0.2-1.0); CO2 26.9 mmol/L (21.0-32.0); Calcium 9.2 mg/dL (8.5-10.1); Chloride 102 mmol/L (98-107); Glucose 289 mg/dL (74-106); Potassium 3.9 mmol/L (3.5-5.1); Sodium 137 mmol/L (136-145); Total Protein 7.5 g/dL (6.4-8.2)
[2022-03-16] MEDS: Omnipaque 350 MG/ML 100 ML BTL IJ (22:41)
[2022-03-16] MEDS: Normal Saline Flush 10 ML SYR IVP (22:42)
[2022-03-16 22:45] LABS: Lipase 65 U/L (73-393)
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
[2022-03-16] MEDS: fentaNYL 100 MCG/2 ML VIAL 50 MCG IVP (23:16)
[2022-03-16 23:38] LABS: Source Nasal/Nares
[2022-03-16 23:51] VITALS: BP 130/75; PULSE 89; RESP 21; O2SAT 96
[2022-03-17] VITALS (21 sets, daily range): BP systolic 97–148; BP diastolic 57–86; PULSE 67–97; RESP 14–23; TEMP 36.5–37.4; O2SAT 91–98
[2022-03-17 00:39] LABS: COVID-19 PCR Negative (Negative)
[2022-03-17] MEDS: MORPHine 10 MG/ML VIAL 2 MG IVP (02:09)
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
--- NOTE | 2022-03-17 09:24 | PDOC.ANES ---
Date of service: 03/17/22 Time of Service: 09:10 Anesthesia Note Report Anesthesia Note: At the request of Dr. Torres, spoke with patient about potential for ESPB for multiple rib fractures. Patient was educated about the risks and benefits of the nerve block. At this time, the patient verbalizes understanding and wishes to hold off on the block. I encouraged the patient to reach out to anesthesia at any time to discuss her options further if her wishes changed.
[2022-03-17] MEDS: Docusate Sodium 100 MG CAP PO ×2 (09:38→20:36)
[2022-03-17] MEDS: Acetaminophen 500 MG TAB 1000 MG PO ×2 (09:38→17:01)
[2022-03-17] MEDS: Lidocaine 5% Patch 1 PATCH TP (09:39)
[2022-03-17] MEDS: Ondansetron 4 MG/2 ML VIAL IVP ×2 (09:39→15:44)
[2022-03-17] MEDS: Ketorolac 15 MG/ML VIAL IVP ×3 (09:40→21:57)
--- NOTE | 2022-03-17 13:36 | PGE_ITS ---
Date of Service Date of service: 03/17/22 Time of Service: 13:37 Assessment and Plan Assessment and plan (1) Multiple rib fractures involving four or more ribs: Status: Acute Assessment and plan: I did discuss US guided rib blocks with Paty again. She is now willing to give it a try. I have let anesthesia know. Continue with ISP, pain control with Toradol and tylenol. (patient doesn't want narcotics) If doing OK tomorrow will D/C to home Subjective Subjective Interval history since last seen: Paty Torres is doing well considering. She complains mostly of supraclavicular pain right now. She has no SOB. She was unsure about the rib block. I did discuss it with her a bit more and recommend that she have it done especially as she doesn't want to take any narcotics. Her pain is controlled with Toradol and Tylenol unless she tries to move or coughs. Discussed risk of penumonia if she doesn't get up and move and take deep breaths. Exam Const General: comfortable and no acute distress Nutritional Appearance: average body habitus Orientation: alert and oriented x3 [facility] Head: normocephalic and atraumatic Face images: 1. Abrasion 2. Bruising Resp Effort & Inspection: normal respiratory effort Auscultation: clear to auscultation bilaterally and diminished lung sounds on the left in the lower lung hand Cardio Rate: regular rate Rhythm: regular rhythm Objective Last Vital Signs Temp 99.3 F 03/17/22 09:20 Pulse 96 H 03/17/22 09:15 Resp 22 03/17/22 12:00 BP 130/71 03/17/22 09:15 Pulse Ox 94 03/17/22 09:15 Laboratory Results - last 24 hr 03/16/22 03/16/22 03/16/22 22:10 22:10 22:10 WBC 10.78 RBC 4.30 Hgb 12.1 Hct 37.2 MCV 87 MCH 28.1 MCHC 32.5 RDW 13.1 Plt Count 355 MPV 11.0 Immature Gran % 1.1 Neutrophils % 63.0 Lymphocytes % 26.2 Monocytes % 7.1 Eosinophils % 2.2 Basophils % 0.4 Nucleated RBC % 0.0 Absolute Neutrophils 6.80 H Absolute Lymphocytes 2.82 Absolute Monocytes 0.76 Absolute Eosinophils 0.24 Absolute Basophils 0.04 Sodium 137 Potassium 3.9 Chloride 102 Carbon Dioxide 26.9 Anion Gap 8.1 BUN 21 H Creatinine 1.0 Est GFR (CKD-EPI 2020) 63.30 Glucose 289 H Calcium 9.2 Total Bilirubin 0.5 AST 31 ALT 37 Alkaline Phosphatase 106 Total Protein 7.5 Albumin 3.7 Lipase COVID-19 Source SARS-CoV-2 (PCR) Patient ABO/Rh A Positive Antibody Screen NEGATIVE 03/16/22 03/16/22 22:10 23:35 WBC RBC Hgb Hct MCV MCH MCHC RDW Plt Count MPV Immature Gran % Neutrophils % Lymphocytes % Monocytes % Eosinophils % Basophils % Nucleated RBC % Absolute Neutrophils Absolute Lymphocytes Absolute Monocytes Absolute Eosinophils Absolute Basophils Sodium Potassium Chloride Carbon Dioxide Anion Gap BUN Creatinine Est GFR (CKD-EPI 2020) Glucose Calcium Total Bilirubin AST ALT Alkaline Phosphatase Total Protein Albumin Lipase 65 COVID-19 Source Nasal/Nares SARS-CoV-2 (PCR) Negative Patient ABO/Rh Antibody Screen PAWSS Have you Been Recently Intoxicated or Drunk Within the Last 30 days?: No Have you Ever Experienced Previous Episodes of Alcohol Withdrawal?: No Have you ever Experienced Withdrawal Seizures?: No Have you ever Experienced Delirium Tremens(DT)s?: No Have you ever undergone Alcohol Rehabilitation Treatment (i.e, inpt ot outpatient treatment programs)?: No Have you ever Experienced Blackouts?: No Have you ever Combined Alcohol with other Downers within the last 90 days?: No Have you ever Combined Alcohol with any other Substance of Abuse during the last 90 days?: No Positive Blood Alcohol level on Presentation? [PCS.BAL]: No Evidence of Increased Autonomic Activity (i.e. HR>120, tremor, sweating, agitation, nausea)?: No Result: 0
--- NOTE | 2022-03-17 14:38 | W.ANESNERVE ---
Nerve Block Single Injection Procedure Date and Time Date Performed: 03/17/22 Procedure Start: 14:13 Location Where Procedure Performed Procedure Location: Intensive Care Unit Reason Performed: Acute Pain Management Pain Diagnosis: Rib Pain Requesting Provider: Elsy Rasmussen Timeout Performed Timeout Performed: Yes Monitoring Used ECG, Blood Pressure, SpO2 and See EMR for corresponding vital signs Sterility Sterility: Hand Hygiene, Surgical Cap, Surgical Mask, Sterile Gloves and Chlorhexidine Sedation Given During Procedure Sedation Given (Indicate Dose Given): Versed IV Dose:: 2mg Patient Mental Status Patient Mental Status: Sedate with meaningful communication Nerve Block 1st Nerve Block: Laterality: Left Block Type: Erector Spinae (Upper) Needle / Catheter Used: 100mm SonoPlex II Local Anesthetic Bolus (Indicate Dose Given): Lidocaine used for local infiltration of skin, Injected in 3-5ml increments after negative blood aspiration and Bupivacaine 0.25% Dose:: 30 mL Additives (Indicate Dose Given): Precedex Dose:: 40mcg Ultrasound: Sterile probe cover and gel used Ultrasound Image Saved?: Yes Nerve Stimulator: Not Used Paresthesia: None Procedure Tolerated: No Complications Procedure Outcome: Successful Performed By: Bethanie Tapia
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
[2022-03-17] MEDS: Normal Saline Flush 10 ML SYR IVP ×3 (15:58→21:58)
--- NOTE | 2022-03-17 16:02 | NUR.NOTE ---
Addendum entered by Alpa Pardo 03/17/22 16:07: Kimmie Aly informed and spoke with patient on not using her insulin. Patient agreed and verbalized the plan for the [place] RN to dose insulin based off of the patient's own monitor. Original Note: Patient gave humalog 8units from her own pen at approximately 0900 and 1300. Insulin orders and pen have now been placed and received and patient will receive schedule insulin from [facility] pharmacy medications.Nursing Note:
--- NOTE | 2022-03-17 16:43 | NUR.NOTE ---
Nursing Note: Patient arrived on unit from ICU at 1555, vital signs taken and stable.
[2022-03-17] MEDS: Prochlorperazine 10 MG/2 ML VIAL 5 MG IVP (20:36)
[2022-03-17] MEDS: Insulin Aspart 300 UNITS/3 ML PEN SC (21:55)
[2022-03-17] MEDS: Insulin Glargine 300 UNITS/3 ML PEN 24 UNITS SC (21:56)
[2022-03-18] MEDS: Acetaminophen 500 MG TAB 1000 MG PO ×2 (00:50→08:09)
[2022-03-18 07:17] VITALS: BP 172/83; PULSE 83; RESP 16; TEMP 37.2; O2SAT 95
[2022-03-18] MEDS: Docusate Sodium 100 MG CAP PO (08:08)
[2022-03-18] MEDS: Atorvastatin 40 MG TAB PO (08:09)
[2022-03-18] MEDS: Psyllium PKT 1 EACH PO (08:09)
[2022-03-18] MEDS: Lidocaine 5% Patch 1 PATCH TP (08:09)
[2022-03-18] MEDS: Ketorolac 15 MG/ML VIAL IVP (08:45)
[2022-03-18] MEDS: Normal Saline Flush 10 ML SYR IVP (08:45)
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
== END 2022-03-18 11:49 | disposition home or self-care (01) ==
LOC: ER 23:49 → ICU 03-17 01:01 → MS 03-17 16:11
PROVIDERS: Admitting Provider Surgery; Emergency Provider Physician Assistant; PCP Nurse Practitioner; Visit Provider Surgery
DX: S22.42XA Multiple fractures of ribs, left side, initial encounter for closed fracture (principal); S22.21XA Fracture of manubrium, initial encounter for closed fracture; S00.83XA Contusion of other part of head, initial encounter; S20.211A Contusion of right front wall of thorax, initial encounter; V47.0XXA Car driver injured in collision with fixed or stationary object in nontraffic accident, initial encounter; E11.9 Type 2 diabetes mellitus without complications; Z79.4 Long term (current) use of insulin; E78.5 Hyperlipidemia, unspecified; B00.1 Herpesviral vesicular dermatitis; Z79.899 Other long term (current) drug therapy; Z20.822 Contact with and (suspected) exposure to COVID-19
CPT/HCPCS: 74177; 76942; 80053; 83690; 86850; 86900; 86901; 87635; 96361; 96365; 96372; 96374; 96375; 96376; 99220; 99239; 99285; 70450; 70486; 71260; 72125; 85025; J0131; J0780; J1885; J2250; J2270; J2405; J3010; J3490

== ENCOUNTER → 2022-03-22 02:22 | Outpatient (CLI) | payer OTHER, SELFPAY ==
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
== END ==
PROVIDERS: PCP Nurse Practitioner; Visit Provider Surgery
DX: S22.21XA Fracture of manubrium, initial encounter for closed fracture (principal); S22.42XA Multiple fractures of ribs, left side, initial encounter for closed fracture; X58.XXXA Exposure to other specified factors, initial encounter
CPT/HCPCS: 71046

== ENCOUNTER 2022-09-29 00:21 | Outpatient (CLI) | payer OTHER, SELFPAY ==
--- NOTE | 2022-09-29 06:45 | DI.MAMMO_ITS ---
Exam(s) MAMMO SCREENING EXAM: MAMMO SCREENING CLINICAL HISTORY: screening,z12.39 TECHNIQUE: Bilateral full field digital CC and MLO mammographic images were obtained with 3D tomosyn thesis and utilizing computer aided detection (CAD). COMPARISON: Available for comparison. FINDINGS: Masses/Architectural Distortion: None seen. Microcalcifications: No suspicious pleomorphic-type are seen. Skin Thickening/Nipple Retraction: None. IMPRESSION: 1. No significant interval change with no specific features of malignancy noted. 2. Unless there is more urgent need, screening mammography is recommended, as per [employer] guidelines. BI-RADS Category 1 - Negative Breast Density - Category B - Scattered areas of fibroglandular density Breast density category C or D implies that the patient has dense breast tissue. Dense breast tissue is very common and is not abnormal but dense breast tissue can make it harder to find cancer on a ma mmogram. Also, dense breast tissue may increase their breast cancer risk. This information about the result of the mammogram report was provided to the patient to raise their awareness. Use this report when you speak with the patient about their risks for breast cancer, which includes their family hist ory. At that time, you may recommend for more screening tests (Ultrasound or MRI) as they might be us eful based on their risk. A negative radiographic report should not delay biopsy if a dominant or clinically suspicious mass is present. Up to ten percent of cancers are not identified on mammography. A negative report may reinforce clinical impression. Adenosis and dense breasts may obscure an underlying neoplasm. False positive reports average 6 to 10%. Patient will receive a letter notifying them of these results.
== END 2022-09-29 00:41 ==
LOC: DI 00:22
PROVIDERS: PCP Nurse Practitioner Family; Visit Provider Nurse Practitioner Family
DX: Z12.31 Encounter for screening mammogram for malignant neoplasm of breast (principal)
CPT/HCPCS: 77063; 77067

== ENCOUNTER 2023-04-24 09:21 | Outpatient (REF) | payer OTHER, SELFPAY ==
[2023-04-24 12:49] LABS: Bilirubin Negative (Negative); Blood Moderate (Negative); Clarity Cloudy (Clear); Glucose Negative (Negative); Ketones Negative (Negative); Leukocyte Esterase Moderate (Negative); Nitrite Positive (Negative); Specific Gravity 1.025 (1.005-1.025); Urobilinogen 0.2 mg/dL (Up to 0.2); pH 5.5 (5-8)
[2023-04-24 13:06] LABS: Bacteria Many HPF (Negative); Crystals Negative HPF (Negative); Epithelial Cells Few HPF (Negative); Mucus Heavy (Negative); WBC 20-50 HPF (0-5)
[2023-04-24 13:07] LABS: C & S Indicated? Yes; Casts Negative LPF (Negative)
== END 2023-04-24 09:22 | disposition home or self-care (01) ==
LOC: LBN 09:21
PROVIDERS: PCP Nurse Practitioner Family; Visit Provider Physician Assistant
DX: R39.9 Unspecified symptoms and signs involving the genitourinary system (principal); B96.20 Unspecified Escherichia coli [E. coli] as the cause of diseases classified elsewhere
CPT/HCPCS: 87077; 81003; 81015; 87086; 87186

== ENCOUNTER 2023-07-27 02:31 | Outpatient (CLI) | payer OTHER, SELFPAY ==
[2023-07-27 12:41] LABS: ALT 26 U/L (14-59); AST 16 U/L (15-37); Albumin 3.6 g/dL (3.4-5.0); Alkaline Phosphatase 90 U/L (46-116); BUN 19 mg/dL (7-18); Bilirubin, Total 0.6 mg/dL (0.2-1.0); CREATININE 0.9 mg/dL (0.55-1.02); Calcium 9.4 mg/dL (8.5-10.1); Calculated LDL 147 mg/dL (<100); Chloride 106 mmol/L (98-107); Cholesterol 253 mg/dL (<200); Estimated GFR 70.95 (mL/min/1.73m2); Glucose 82 mg/dL (74-106); HDL Cholesterol 95 mg/dL (40-60); Potassium 4.2 mmol/L (3.5-5.1); Sodium 142 mmol/L (136-145); Total Protein 7.6 g/dL (6.4-8.2); Triglyceride 58 mg/dL (<150)
== END 2023-07-27 02:32 | disposition home or self-care (01) ==
LOC: LOS 02:31
PROVIDERS: PCP Nurse Practitioner Family; Visit Provider Nurse Practitioner Family
DX: E11.9 Type 2 diabetes mellitus without complications (principal); Z79.4 Long term (current) use of insulin; E78.5 Hyperlipidemia, unspecified
CPT/HCPCS: 36415; 80053; 80061

== ENCOUNTER 2023-07-28 08:57 | Outpatient (CLI) | payer OTHER, SELFPAY ==
--- NOTE | 2023-07-28 08:45 | RT.EKG_ITS ---
APPROVED REPORT Exam: Resting ECG Reason for Exam: Chest discomfort Patient Location: O HR:70 bpm ECG Measurements Heart Rate 70 AXIS ME 177 P -3 QRSd 82 QRS 46 QT 379 T 31 QTc 409 Conclusion Sinus rhythm...normal P axis, V-rate 50- 99 I have reviewed and interpreted ECG and agree with software generated interpretation.
== END 2023-07-28 08:58 | disposition home or self-care (01) ==
LOC: DI.CM 08:58
PROVIDERS: PCP Nurse Practitioner Family; Visit Provider Nurse Practitioner Family
DX: R07.9 Chest pain, unspecified (principal)
CPT/HCPCS: 93010

== ENCOUNTER 2023-07-28 09:35 | Emergency (ER) | payer OTHER, SELFPAY ==
[2023-07-28] VITALS (35 sets, daily range): BP systolic 151–201; BP diastolic 57–97; PULSE 63–80; RESP 9–21; TEMP 36.2–37; O2SAT 98–100
--- NOTE | 2023-07-28 09:30 | RT.EKG_ITS ---
APPROVED REPORT Exam: Resting ECG Reason for Exam: chest pain Patient Location: E HR:65 bpm ECG Measurements Heart Rate 65 AXIS MN 184 P 6 QRSd 72 QRS 52 QT 383 T 35 QTc 398 Conclusion Sinus rhythm. normal axis no acute ischemic change
[2023-07-28 10:06] LABS: Abs Immature Grans 0.02 10^3/uL (0.0-0.06); Absolute Basophil Count 0.05 10^3/uL (0.0-0.2); Absolute Neutrophil Count 4.39 10^3/uL (1.2-6.7); Basophils % 0.7; Eosinophils % 1.5; HCT 39.1 % (36.0-46.0); HGB 12.8 g/dL (11.2-15.7); Immature Grans % 0.3; Lymphocytes % 25.1; MCH 27.9 pg (27.0-33.0); MCHC 32.7 % (32.0-36.0); MCV 85 fL (80-95); MPV 10.1 fL (8.0-11.0); Monocytes % 7.4; Platelet Count 390 10^3/uL (130-400); RBC 4.58 10^6/uL (3.93-5.22); RDW 13.3 % (11.7-14.6); RDW-SD 41.4 fL; WBC 6.76 10^3/uL (4.4-10.8)
[2023-07-28 10:24] LABS: ALT 25 U/L (14-59); AST 16 U/L (15-37); Albumin 3.8 g/dL (3.4-5.0); Alkaline Phosphatase 97 U/L (46-116); Anion Gap 9.5 mmol/L (3-11); BUN 17 mg/dL (7-18); Bilirubin, Total 0.6 mg/dL (0.2-1.0); CO2 27.5 mmol/L (21.0-32.0); CREATININE 0.7 mg/dL (0.55-1.02); Calcium 9.6 mg/dL (8.5-10.1); Chloride 105 mmol/L (98-107); Estimated GFR 95.92 (mL/min/1.73m2); Glucose 88 mg/dL (74-106); Magnesium 1.9 mg/dL (1.8-2.4); Sodium 142 mmol/L (136-145); Total Protein 7.8 g/dL (6.4-8.2); Troponin I < 50 ng/L (< or =60)
[2023-07-28 10:40] LABS: D-Dimer 400 ng/mlFEU (<500)
--- NOTE | 2023-07-28 10:52 | DI.RAD_ITS ---
Exam(s) XR CHEST 2V PA LATERAL EXAM: XR CHEST 2V PA LATERAL CLINICAL HISTORY: right sided chest pain. TECHNIQUE: 2D digital imaging was performed. COMPARISON: CR XR CHEST 2V PA LATERAL from 03/22/2022 FINDINGS: 2 views: Heart size is normal. The mediastinum is not widened. Lungs are clear. No infiltrates nor pleural effusions. IMPRESSION: No acute pulmonary findings. DATA REPOSITORY: RADIATION DOSE DELIVERED:
--- NOTE | 2023-07-28 11:06 | DI.VRAD_ITS ---
PROCEDURE INFORMATION: Exam: XR Chest Exam date and time: 07/28/2023 10:43 AM Age: 63 years old Clinical indication: Other: Right sided chest pain TECHNIQUE: Imaging protocol: Radiologic exam of the chest. Views: 2 views. COMPARISON: CR XR CHEST 2V PA LATERAL 03/22/2022 12:53 PM FINDINGS: Lungs: No focal infiltrate seen of the lungs. Pleural spaces: No pneumothorax and no pleural effusion seen. Heart/Mediastinum: Heart size appears within normal. Bones/joints: Postoperative changes, anchors proximal left humerus, left shoulder. Prior rib fractures. IMPRESSION: No acute findings seen of the chest. Dictated and Authenticated by: Tye Brush MD. Ordering:AILEEN Ferrell MD
--- NOTE | 2023-07-28 12:03 | ED.GENADUL_ITS ---
HPI General Mode of arrival: ambulatory . Date/Time Provider Initiated Documentation: 07/28/23 09:48 . Limitations to Documentation: no limitations . Information obtained by: patient and RN notes reviewed . History of Present Illness 63 year old F presents to the emergency department with the chief complaint of Chest pain, described as mild and moderate, and is localized to the chest, back and right. Patient started experiencing this week(s) (1) and it has been intermittent. Medication improves symptom(s), No exacerbating factors reported . Patient notes no other symptoms.. Patient did receive the following treatments prior to arrival, NSAID Related Data Home Medications Medication Instructions Recorded Confirmed valacyclovir 1 gram tablet 2,000 mg (2 x 1 gram) PO 07/24/18 07/28/23 (Valtrex) DIRECTED #20 tab-caps pen needle, diabetic 31 gauge x #450 ea 09/18/18 07/28/23/16 (BD Ultra-Fine Short Pen Needle) blood sugar diagnostic (FreeStyle #600 ea 07/27/20 07/28/23 Lite Strips) flash glucose scanning reader #1 ea 08/05/20 07/28/23 (FreeStyle Loni 2 [place]) flash glucose sensor (FreeStyle #6 ea 07/20/21 07/28/23 Loni 2 Sensor kit) blood-glucose meter,continuous #1 ea 08/03/21 07/28/23 (Dexcom G6 Technical Implementation Lead) ibuprofen 600 mg tablet 600 mg PO TID PRN pain #90 tabs 11/19/21 07/28/23 atorvastatin 40 mg tablet 40 mg PO DAILY #90 tab-caps 08/25/22 07/28/23 blood-glucose sensor (Dexcom G6 #3 ea 10/06/22 07/28/23 Sensor device) blood-glucose transmitter (Dexcom #1 ea 10/06/22 07/28/23 G6 Transmitter device) insulin glargine 100 unit/mL (3 See Rx Instructions .Route 11/29/22 07/28/23 mL) subcutaneous pen (Lantus .COMPLEX #15 mL Solostar U-100 Insulin) insulin aspart U-100 100 unit/mL 8 unit (0.08 mL) subcut QID #30 mL 07/27/23 07/28/23 (3 mL) subcutaneous pen (Novolog FlexPen U-100 Insulin aspart) Previous Rx's Medication Instructions Recorded valacyclovir 1 gram tablet 2,000 mg (2 x 1 gram) PO 07/24/18 (Valtrex) DIRECTED #20 tab-caps pen needle, diabetic 31 gauge x #450 ea 09/18/1811/07 (BD Ultra-Fine Short Pen Needle) blood sugar diagnostic (FreeStyle #600 ea 07/27/20 Lite Strips) flash glucose scanning reader #1 ea 08/05/20 (FreeStyle Loni 2 [place]) flash glucose sensor (FreeStyle #6 ea 07/20/21 Loni 2 Sensor kit) blood-glucose meter,continuous #1 ea 08/03/21 (Dexcom G6 Technical Implementation Lead) ibuprofen 600 mg tablet 600 mg PO TID PRN pain #90 tabs 11/19/21 atorvastatin 40 mg tablet 40 mg PO DAILY #90 tab-caps 08/25/22 blood-glucose sensor (Dexcom G6 #3 ea 10/06/22 Sensor device) blood-glucose transmitter (Dexcom #1 ea 10/06/22 G6 Transmitter device) insulin glargine 100 unit/mL (3 See Rx Instructions .Route 11/29/22 mL) subcutaneous pen (Lantus .COMPLEX #15 mL Solostar U-100 Insulin) insulin aspart U-100 100 unit/mL 8 unit (0.08 mL) subcut QID #30 mL 07/27/23 (3 mL) subcutaneous pen (Novolog FlexPen U-100 Insulin aspart) Allergies Allergy/AdvReac Type Severity Reaction Status Date / Time No Known Allergies Allergy Verified 07/28/23 10:03 General Stated Complaint: Chest Pain DILSHAD: 2 Review of Systems Constitutional Constitutional: Denies chills, Denies fever(s) and Denies malaise Cardiovascular Cardiovascular: Reports chest pain, Denies chest pain with activity, Denies syncope, Denies rapid heart rate, Denies leg edema and Denies dyspnea Respiratory Respiratory: Denies pain on inspiration, Denies pain with cough and Denies dyspnea Gastrointestinal Gastrointestinal: Denies abdominal pain, Reports nausea and Denies vomiting Musculoskeletal Musculoskeletal: Denies back pain and Reports tingling Integumentary/Breasts Skin/Breast: Denies rash Neurologic Neurologic: Denies syncope and Reports tingling Exam Const General: cooperative, healthy appearing, comfortable, no acute distress, not diaphoretic and not ill appearing Nutritional Appearance: average body habitus Orientation: alert, awake and oriented x3 Limitations: mental status not altered Neck Neck: normal visual inspection, full ROM, trachea midline, supple and no anterior neck swelling Carotids: normal carotid upstroke and no bruits Chest Chest: normal inspection of the chest Resp Effort & Inspection: normal respiratory effort and able to speak in complete sentences Auscultation: clear to auscultation bilaterally Cardio Jugular venous pressure: no JVD Palpation: normal PMI Rate: regular rate Rhythm: regular rhythm Heart Sounds: S1 normal, S2 normal, no click, no gallops, no murmurs and no rubs Bruits: no abdominal aortic bruits and no carotid bruits Pulses: radial pulses present bilaterally 2+ GI Inspection: normal to inspection Palpation: soft, no aortic enlargement, no pulsatile masses and nontender Auscultation: normal bowel sounds Back/Spine/Pelvis Thoracic/Lumbar Spine: paraspinal tenderness (Paraspinal and subscapular tenderness on the right-very mild) Skin General skin exam: no rashes or lesions noted Neuro General: patient alert, patient awake, patient oriented x3, tone normal and moves all extremities Course Vital Signs Vital signs: Vital Signs Temperature 37.0 C 07/28/23 09:40 Pulse 70 07/28/23 09:40 Respiratory Rate 16 07/28/23 09:40 Blood Pressure 201/85 H 07/28/23 09:40 Pulse Oximetry 100 07/28/23 09:40 Temperature 37.0 C 07/28/23 09:40 Temperature Source Skin 07/28/23 09:40 Pulse 66 07/28/23 10:16 Pulse 64 07/28/23 11:50 Respiratory Rate 16 07/28/23 11:40 Respiratory Effort Normal, Non-Labored 07/28/23 10:22 Respiratory Depth Normal 07/28/23 10:22 Respiratory Pattern Normal 07/28/23 10:22 Blood Pressure 181/75 H 07/28/23 10:16 Blood Pressure Mean 113 07/28/23 10:16 Pulse Oximetry 100 07/28/23 09:40 Oxygen Delivery Method Room Air 07/28/23 09:40 Oxygen Flow Rate 0 07/28/23 09:40 Pain Level 1 07/28/23 09:40 Lab/Test Results Lab/Test Results: Laboratory Tests Range/Units 07/28/23 09:57 WBC (4.4-10.8) 10^3/uL 6.76 RBC (3.93-5.22) 10^6/uL 4.58 Hgb (11.2-15.7) g/dL 12.8 Hct (36.0-46.0) % 39.1 MCV (80-95) fL 85 MCH (27.0-33.0) pg 27.9 MCHC (32.0-36.0) % 32.7 RDW (11.7-14.6) % 13.3 Plt Count (130-400) 10^3/uL 390 MPV (8.0-11.0) fL 10.1 Immature Gran % 0.3 Neutrophils % 65.0 Lymphocytes % 25.1 Monocytes % 7.4 Eosinophils % 1.5 Basophils % 0.7 Nucleated RBC % (0.0-0.3) % 0.0 Absolute Neutrophils (1.2-6.7) 10^3/uL 4.39 Absolute Lymphocytes (1.2-3.4) 10^3/uL 1.70 Absolute Monocytes (0.1-0.8) 10^3/uL 0.50 Absolute Eosinophils (0.0-0.7) 10^3/uL 0.10 Absolute Basophils (0.0-0.2) 10^3/uL 0.05 D-Dimer (<500) ng/mlFEU 400 Sodium (136-145) mmol/L 142 Potassium (3.5-5.1) mmol/L 4.0 Chloride (98-107) mmol/L 105 Carbon Dioxide (21.0-32.0) mmol/L 27.5 Anion Gap (3-11) mmol/L 9.5 BUN (7-18) mg/dL 17 Creatinine (0.55-1.02) mg/dL 0.7 Est GFR (CKD-EPI 2020) (mL/min/1.73m2) 95.92 Glucose (74-106) mg/dL 88 Calcium (8.5-10.1) mg/dL 9.6 Magnesium (1.8-2.4) mg/dL 1.9 Total Bilirubin (0.2-1.0) mg/dL 0.6 AST (15-37) U/L 16 ALT (14-59) U/L 25 Alkaline Phosphatase (46-116) U/L 97 Troponin I (< or =60) ng/L < 50 Total Protein (6.4-8.2) g/dL 7.8 Albumin (3.4-5.0) g/dL 3.8 Medical Decision Making Patient presenting to the emergency department after referral from urgent care for right-sided chest pain for 1 week. She states most of the pain is right-si ded subscapular with some radiation into the chest that has been happening for the past week. She states this is intermittent and that when she takes Tylenol ibuprofen or [place] along with hot showers it seems to help relieve symptoms. At this time patient has no current complaints. She did have COVID approximately 1 month ago. Patient has significant contributing past medical history of diabetes, hyperlipidemia with poor medication compliance. Physical exam shows slight reproducible tenderness to palpation of the subscapular region on the right otherwise unremarkable exam. Patient is hypertensive otherwise normal vital signs. Patient does appear slightly anxious. Will perform EKG and labs given that patient does have some risk factors with age along with comorbidities Please see physician interpretation for full interpretation of EKG but upon my review patient is in sinus rhythm no findings to suggest acute STEMI. Review patient's labs patient has a normal CBC, negative D-dimer, CMP nondiagnostic. Chest x-ray was reviewed along with radiologist interpretation shows no acute findings. Patient has negative troponin nondetected. Went in to speak with patient and patient was tearful and crying and stated she just wanted to be discharged home. Did attempt to discussed with patient delta troponin along with further testing as needed and or considering CTA imaging of chest but given that patient is pain-free, having resolution of pain with [id number], negative troponin and D-dimer and symptoms for greater than 1 week I do feel low likelihood that this is ACS, aortic dissection, or other emergent life-threatening illness. Patient did state understanding of potential need for further testing and that we would refer her to primary care provider for consideration of stress and/or echo after reevaluation. After discussion of diagnosis and plan of care patient has no further needs, questions, or concerns and states clear understanding to return to the emergency department for any worsening symptoms. This documentation was generated using [employer] system, please disregard any oddities of phrase or misspellings. Imaging Data Radiologic Study: Imaging: X-Ray Radiologist's impression: Exam(s) PROCEDURE INFORMATION: Exam: XR Chest Exam date and time: 07/28/2023 10:43 AM Age: 63 years old Clinical indication: Other: Right sided chest pain TECHNIQUE: Imaging protocol: Radiologic exam of the chest. Views: 2 views. COMPARISON: CR XR CHEST 2V PA LATERAL 03/22/2022 12:53 PM FINDINGS: Lungs: No focal infiltrate seen of the lungs. Pleural spaces: No pneumothorax and no pleural effusion seen. Heart/Mediastinum: Heart size appears within normal. Bones/joints: Postoperative changes, anchors proximal left humerus, left shoulder. Prior rib fractures. IMPRESSION: No acute findings seen of the chest. Dictated and Authenticated by: Tye Brush MD. Lab Data Lab results reviewed: Yes I reviewed the patient's lab results. Quality:SDOH Health Related Social Needs: No Data to Display PFSH All Active Problems (Updated 07/28/23 @ 12:17 by Ghassan Harman NP) Chest pain (Acute) Closed fracture of manubrium (Acute) Multiple rib fractures involving four or more ribs (Acute) Ankle fracture, right (Acute 11/19/21) Status post ORIF 11/19/2021 Herpes labialis (Acute) As needed high-dose Valtrex x2 doses Vitiligo (Acute) Diffuse hypopigmentation Hyperlipidemia (Acute) Diabetes mellitus type 2, insulin dependent (Acute) Contact dermatitis (Acute) Medical History Diabetes Surgical History History of ankle surgery History of bilateral ligation of fallopian tubes Ligation of fallopian tube Family History Mother Diabetes Essential hypertension Skin cancer Heart disease Father , age 60 Essential hypertension Heart disease Emphysema lung Diabetes Sister Essential hypertension Hyperlipidemia Diabetes Maternal Grandfather No problems noted. Paternal Grandfather Cancer Maternal Grandmother Alcohol abuse Paternal Grandmother No problems noted. Sister Diabetes Essential hypertension Hyperlipidemia Sister No problems noted. Sister No problems noted. Son Alcohol abuse Daughter No problems noted. Social History Smoking/Tobacco Use Status: Never Second Hand Exposure: Yes Smoking risk assessment performed?: Yes Alcohol Intake: current Alcohol Intake frequency: a few times a month Drug use: Never Substance use type: does not use Counseling given: Yes Counseling provided: none Caregiver/Support person: No Household members: spouse Housing: house Communication Needs: None Do you need help understanding health information?: Never Pets and animals: Yes Pets and animals: dog(s) Sexually active: Yes Do you think of yourself as: straight/heterosexual Current gender identity: female What is your relationship status?: How often do you talk on the phone with friends or family?: three or more times per week How often do you get together with friends or relatives?: twice per week How often do you attend baptism or yarsanism services?: decline to answer Do you belong to any clubs or organized social groups?: no Panel score (0-1 are the most socially isolated patients): 2 What type of physical activity do you participate in: walking Duration: < 15 minutes/day Frequency: 1-2 times per week Sari/Sikhism: No preference Special sari needs: No Seatbelt use: always Helmet use: Yes Helmet use: always Drive intox or ride w/intox courier delivery driver: No Do you feel safe at home: Yes Do you feel safe in your relationship?: Yes Discharge Plan Disposition Patient Disposition: Home Condition: Stable Discharge Details Clinical Impression: Chest pain Primary Care Provider: Anthony Carmona ED Provider: Ghassan Harman Meds and New Rx's Prescriptions: Continued atorvastatin 40 mg tablet 40 mg PO DAILY Qty: 90 3RF Rx Instructions: /take one tablet daily valacyclovir [Valtrex] 1 gram tablet 2,000 mg PO DIRECTED Qty: 20 2RF Rx Instructions: TAKE 2 TABS WHEN SYMPTOMS START AND 2 TABS 12 HOURS LATER (DME) Dexcom G6 Technical Implementation Lead Misc See Rx Instructions .ROUTE .MEDSUPPLY Qty: 1 0RF Rx Instructions: As directed (DME) pen needle, diabetic [BD Ultra-Fine Short Pen Needle] 31 gauge x 5/16 needle See Dose Instructions .ROUTE .MEDSUPPLY Qty: 450 4RF Dose Instruction: As directed Rx Instructions: 1 each 5 times/day as directed (DME) FreeStyle Lite Strips Strip See Rx Instructions .ROUTE .MEDSUPPLY Qty: 600 4RF Rx Instructions: Check blood sugar 6 times a day (DME) FreeStyle Loni 2 [place] Misc See Rx Instructions .ROUTE .MEDSUPPLY Qty: 1 0RF Rx Instructions: As directed (DME) FreeStyle Loni 2 Sensor Kit See Rx Instructions .ROUTE .MEDSUPPLY Qty: 6 4RF Rx Instructions: As directed (DME) Dexcom G6 Sensor Device See Rx Instructions .ROUTE .MEDSUPPLY Qty: 3 12RF Rx Instructions: As directed (DME) Dexcom G6 Transmitter Device See Rx Instructions .ROUTE .MEDSUPPLY Qty: 1 12RF Rx Instructions: As directed insulin glargine [Lantus Solostar U-100 Insulin] 100 unit/mL (3 mL) insulin pen See Rx Instructions .ROUTE .COMPLEX Qty: 15 6RF Dose Instruction: INJECT 24 UNITS UNDER THE SKIN ONCE DAILY Rx Instructions: INJECT 24 UNITS UNDER THE SKIN ONCE DAILY insulin aspart U-100 [Novolog FlexPen U-100 Insulin] 100 unit/mL (3 mL) insulin pen 8 unit subcut QID Qty: 30 4RF ibuprofen 600 mg tablet 600 mg PO TID PRN (Reason: pain) Qty: 90 3RF Discharge Instructions Instructions: Chest Pain (ED) Additional Instructions: Please return to the emergency department immediately for any new or significant worsening of symptoms. While your chest pain could be muscular in nature it is recommended that you follow-up with your primary care provider for reassessment and to further discuss additional outpatient testing. Continue to take your medications as prescribed and rest over the next couple days. Referrals: Anthony Carmona NP [Primary Care Provider] - 3 days Discharge Data Discharge Date/Time-TO BE ENTERED AT DEPARTURE: 07/28/23 12:30
--- NOTE | 2023-07-28 13:50 | NUR.NOTE ---
Referral faxed to PCP for chest pain within 5 to 7 days. Nursing Note:
== END 2023-07-28 12:30 | disposition home or self-care (01) ==
PROVIDERS: Emergency Provider Nurse Practitioner Family; PCP Nurse Practitioner Family
DX: R07.9 Chest pain, unspecified (principal); E11.9 Type 2 diabetes mellitus without complications; E78.5 Hyperlipidemia, unspecified; Z79.4 Long term (current) use of insulin
CPT/HCPCS: 80053; 93005; 99285; 71046; 83735; 84484; 85025; 85379; 93010; 99284

== ENCOUNTER 2023-12-28 08:57 | Outpatient (REF) | payer OTHER, SELFPAY ==
--- NOTE | 2023-12-28 08:30 | PAPFT_PTH ---
PATIENT: Paty Torres LOC: [facility] U#:[id number] AGE/SX: 63/F ROOM: RE12/28/[address]: Anthony Wilcox DNP : 1960 BED: DIS: 12/28/2023 SPEC #: [id number] RECD: 12/31/23 18:32 STATUS: DONNA RERola #: [id number] KENNEDY: 12/28/23 08:[address]: Anthony Carmona DEPT: [facility] Cytology RECD BY: Jerilyn Muhammad Tissues: 1 - CX/ENDOCX FOR PAP SMEARS Procedures: PAP THIN PREP/UVM Screening HPV DNA PROBE Comments: [id number] (HPV 16 & 18/45) (CHLAMYDIA/GC)
[2023-12-28 13:36] LABS: COMMENT (LAB VIEW ONLY) 27.18 mg/dL
[2024-01-01 13:23] LABS: Chlamydia Result Negative (Negative); GC Result Negative (Negative)
== END 2023-12-28 08:58 | disposition home or self-care (01) ==
LOC: LBN 08:57
PROVIDERS: PCP Nurse Practitioner Family; Visit Provider Nurse Practitioner Family
DX: E11.9 Type 2 diabetes mellitus without complications (principal); Z79.4 Long term (current) use of insulin; Z12.4 Encounter for screening for malignant neoplasm of cervix
CPT/HCPCS: 87491; 87591; 88142; 82043; 82570; 87624

== ENCOUNTER 2024-06-12 16:13 | Outpatient (REF) | payer OTHER, SELFPAY | END 2024-06-12 16:14 | disposition home or self-care (01) | LOC: LBN 16:13 | PROVIDERS: PCP Nurse Practitioner Family; Visit Provider Physician Assistant | DX: N39.0 Urinary tract infection, site not specified (principal) | CPT/HCPCS: 87077; 87086; 87186 ==

== ENCOUNTER 2024-06-24 15:34 | Outpatient (REF) | payer OTHER, SELFPAY | END 2024-06-24 15:35 | disposition home or self-care (01) | LOC: LBN 15:34 | PROVIDERS: PCP Nurse Practitioner Family; Visit Provider Physician Assistant Medical | DX: N39.0 Urinary tract infection, site not specified (principal) | CPT/HCPCS: 87086 ==

== ENCOUNTER 2024-12-29 14:21 | Outpatient (REF) | payer MEDICARE, OTHER, SELFPAY ==
[2024-12-29 12:50] LABS: ALT 26 U/L (14-59); AST 22 U/L (15-37); Albumin 3.7 g/dL (3.4-5.0); Alkaline Phosphatase 107 U/L (46-116); Anion Gap 11.3 mmol/L (3-11); BUN 18 mg/dL (7-18); Bilirubin, Total 0.7 mg/dL (0.2-1.0); CO2 24.7 mmol/L (21.0-32.0); Calcium 9.3 mg/dL (8.5-10.1); Calculated LDL 116 mg/dL (<100); Chloride 103 mmol/L (98-107); Cholesterol 224 mg/dL (<200); Estimated GFR 98.93 (mL/min/1.73m2); Glucose 158 mg/dL (74-106); HDL Cholesterol 98 mg/dL (>or=50); Potassium 4.9 mmol/L (3.5-5.1); Sodium 139 mmol/L (136-145); Total Protein 6.8 g/dL (6.4-8.2); Triglyceride 53 mg/dL (<150)
== END 2024-12-29 14:22 | disposition home or self-care (01) ==
LOC: LBN 14:21
PROVIDERS: PCP Nurse Practitioner Family; Visit Provider Nurse Practitioner Family
DX: E78.5 Hyperlipidemia, unspecified (principal)
CPT/HCPCS: 80053; 80061